=== PATIENT | male | born 1970 | race Caucasian/White ===

== ENCOUNTER 2024-12-11 15:35 | Inpatient (IN) | payer MEDICARE, MEDICAID ==
[~2024-12-11] VITALS: Ht 170.2 cm; Wt 92.9 kg
--- NOTE | 2024-12-11 15:54 | ED.PDOC ---
Musculoskeletal HPI Comments 54-year-old male presents with a chief complaint of bilateral leg wounds x "months" as well as generalized weakness. This patient appears to be in poor overall health. Patient states that he has draining, weeping wounds on both his lower extremities and is currently on linezolid for them. 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 Patient mentions that he takes Oxycodone for pain. Patients sister reports that also patient has bouts of confusion due to having high potassium and would like to have patients levels checked. No other symptoms or modifying factors present at this time. Patient w as hypertensive on arrival. Time Seen by MD: 15:46 Reviewed Notes: Nurses Notes, Medications, Allergies Allergies: Coded Allergies: Penicillins (Verified Allergy, Unknown, 12/11/24) Information Source: Patient, Relative (Sibling) Mode of Arrival: Wheelchair Location: Bilateral Extremity Location: Leg Timing: Months Prehospital treatment: None Severity: Moderate Able to Move Extremity: Yes Bear Weight: Limited Pain: Moderate Hand Dominance: Right Mechanism: Spontaneous Circumstances: Spontaneous Onset of Symptoms: Spontaneous Symptoms: Swelling, Pain DVT Risk Factors: NONE Last Tetanus: Unknown Past Medical History PAST MEDICAL HISTORY: Thyroid Surgical History: Denies all surgeries Family History Family History: Reviewed,noncontributory to illness Social History Smoker: Non-Smoker Alcohol: Denies ETOH Use Drugs: Denies Drug Use Lives In: Home Constitutional: reports: weakness; denies: chills, diaphoresis, fatigue, fever, malaise, sweats, others EENTM: denies: blurred vision, double vision, ear bleeding, ear discharge, ear drainage, ear pain, ear ringing, eye pain, eye redness, hearing loss, mouth pain, mouth swelling, nasal discharge, nose bleeding, nose congestion, nose pain, photophobia, tearing, throat pain, throat swelling, voice changes, others Respiratory: denies: cough, hemoptysis, orthopnea, SOB at rest, shortness of breath, SOB with excertion, stridor, wheezing, others Cardiovascular: denies: chest pain, dizzy spells, diaphoresis, Dyspnea on exertion, edema, irregular heart beat, left arm pain, lightheadedness, palpitations, PND, syncope, others Gastrointestinal: denies: abdomen distended, abdominal pain, blood streaked bowels, constipated, diarrhea, dysphagia, difficulty swallowing, hematemesis, melena, nausea, poor appetite, poor fluid intake, rectal bleeding, rectal pain, vomiting, others Genitourinary: denies: burning, dysuria, flank pain, frequency, hematuria, incontinence, penile discharge, penile sore, pain, testicle pain, testicle swelling, urgency, others Neurological: denies: dizziness, fainting, headache, left sided numbness, left sided weakness, numbness, paresthesia, pre-existing deficit, right sided numbness, right sided weakness, seizure, speech problems, tingling, tremors, weakness, others Musculoskeletal: denies: back pain, gout, joint pain, joint swelling, muscle pain, muscle stiffness, neck pain, others Integumetry: reports: wounds (Bilateral lower extremities); denies: bruises, change in color, change in hair/nails, dryness, laceration, lesions, lumps, rash, others Allergic/Immunocompromised: denies: Difficulty Healing, Frequent Infections, Hives, Itching, others Hematologic/Lymphatic: denies: anemia, blood clots, easy bleeding, easy bruising, swollen glands, others Endocrine: denies: excessive hunger, excessive sweating, excessive thirst, excessive urination, flushing, intolerance to cold, intolerance to heat, unexplained weight gain, unexplained weight loss, others Psychiatric: denies: anxiety, bipolar disorder, depression, hopeless, panic disorder, schizophrenia, sleepless, suicidal, others All Other Systems: Reviewed and Negative Physical Exam Exam Comments This patient appears to be in poor overall health at time of evaluation. Pat ient was very pale. General Appearance: Moderate Distress (Patient appears to be in moderate distress due to leg pain concerns and general weakness concerns.), Normal HEENT: Normal ENT Inspection, Pharynx Normal, TMs Normal Neck: Full Range of Motion, Non-Tender, Normal, Normal Inspection Respiratory: Chest Non-Tender, Lungs Clear, No Accessory Muscle Use, No Respiratory Distress, Normal Breath Sounds Cardiovascular: No Edema, No JVD, No Murmur, No Gallop, Normal Peripheral Pulses, Regular Rate/Rhythm Breast Exam: Deferred Gastrointestinal: No Organomegaly, Non Tender, No Pulsatile Mass, Normal Bowel Sounds, Soft Genitalia: Deferred Pelvic: Deferred Rectal: Deferred Extremities: Other (Patient has extensive wounds to bilateral lower extremities extending from the knee and through the ankle. Weeping wounds noted.) Musculoskeletal : Apperance: Normal Neurologic: Alert, No Motor Deficits, Normal Affect, Normal Mood, No Sensory Deficits Cerebellar Function: NOT DONE Reflexes: NOT DONE Skin: Dry, Normal Color, Warm Lymphatic: No Adenopathy Was a procedure done? Was a procedure done?: No Differential Diagnosis EXT Differential Diagnosis: Other (Cellulitis, electrolyte abnormality, DVT, renal concerns) X-Ray, Labs, Meds, VS Vital Signs Date Time Temp Pulse Resp B/P (MAP) Pulse Ox O2 Delivery O2 Flow Rate FiO2 12/11/24 16:01 97.8 79 19 163/61 (95) 98 Lab Test 12/11/24 16:34 Range/Units White Blood Count 8.5 4.4-10.8 10^3/uL Red Blood Count 2.80 L 4.5-5.90 10^6/uL Hemoglobin 9.1 L 13.5-17.5 g/dL Hematocrit 26.8 L 41.0-53.0 % Mean Corpuscular Volume 95.8 80.0-100.0 fL Mean Corpuscular Hemoglobin 32.5 H 28.0-32.0 pg Mean Corpuscular Hemoglobin Concent 33.9 32.0-36.0 g/dL Red Cell Distribution Width 15.8 H 11.8-14.3 % Platelet Count 237 140-450 10^3/uL Mean Platelet Volume 7.5 6.9-10.8 fL Neutrophils (%) (Auto) 75.3 37.0-80.0 % Lymphocytes (%) (Auto) 11.2 10.0-50.0 % Monocytes (%) (Auto) 7.7 0.0-12.0 % Eosinophils (%) (Auto) 5.4 0.0-7.0 % Basophils (%) (Auto) 0.4 0.0-2.0 % Neutrophils # (Auto) 6.4 1.6-8.6 10 ^3/uL Lymphocytes # (Auto) 1.0 0.4-5.4 10 ^3/uL Monocytes # (Auto) 0.7 0-1.3 10 ^3/uL Eosinophils # (Auto) 0.5 0-0.8 10 ^3/uL Basophils # (Auto) 0 0-0.2 10 ^3/uL Nucleated Red Blood Cells 0.0 % Sodium Level 137 136-145 mmol/L Potassium Level 5.8 *H 3.5-5.1 mmol/L Chloride Level 110 H 98-107 mmol/L Carbon Dioxide Level 16 L 20-31 mmol/L Anion Gap 11 5-15 Blood Urea Nitrogen 87 *H 9-23 mg/dL Creatinine 7.13 H 0.700-1.30 mg/dL Glomerular Filtration Rate Calc 8 >90 mL/min BUN/Creatinine Ratio 12.2 10.0-20.0 Serum Glucose 109 H 74-106 mg/dL Lactic Acid Level 0.8 0.4-2.0 mmol/L Calcium Level 9.7 8.7-10.4 mg/dL Total Bilirubin < 0.2 L 0.2-1.0 mg/dL Aspartate Amino Transferase (AST) 15 13-40 U/L Alanine Aminotransferase (ALT) < 9 7-40 U/L Alkaline Phosphatase 60 46-116 U/L Total Protein 7.4 5.7-8.2 g/dL Albumin 4.2 3.2-4.8 g/dL X-Ray, Labs, Meds, VS Comment All studies performed the ED were evaluated by me personally. Doppler studies of bilateral lower extremities were unremarkable for any DVT formation. Patient's serum laboratories do not show an elevated WBC, but patient did have a hypokalemic state as well as what appears to be acute on chronic significant renal concerns. Patient will be admitted for wound evaluation as well as management of his kidney issues and nephrology consultation. Time of 1ST Reevaluation: 15:46 Reevaluation 1ST: Unchanged Patient Education/Counseling: Diagnosis, Treatment, Prognosis Family Education/Counseling: Diagnosis, Treatment, Prognosis Departure 1 Departure Time of Disposition: 17:59 Impression: Primary Impression: Antibiotic-resistant bacterial infection Additional Impressions: Hyperkalemia Acute renal failure superimposed on chronic kidney disease Disposition: 09 ADMITTED INPATIENT Condition: Fair Discharged With: Self, Relative Critical Care Note Critical Care Time?: No Stability Stability form required: No I personally scribed for WALTER HERRERA PAC ([email or web address]) on 12/11/24 at 15:54. Electronically submitted by Francisco Carias ([email or web address]). WALTER HERRERA PAC Dec 11, 2024 15:54
--- NOTE | 2024-12-11 16:57 | DVH ---
Bilateral lower extremity venous duplex Clinical History: DVT rule out Comparison: None Technique: Duplex Doppler evaluation of the deep venous systems of both lower extremities from the common femora l veins to the popliteal veins including color Doppler and spectral/pulsed waveform analysis was perf ormed. Findings: RIGHT SIDE: The common femoral vein demonstrates appropriate compressibility and waveform variability. There is compressibility/patency of the great saphenous vein at the proximal thigh. The femoral vein demonstrates appropriate compressibility and waveform variability. The deep femoral vein demonstrates appropriate compressibility and waveform variability. The popliteal vein demonstrates appropriate compressibility and waveform variability. There is normal compressibility at the tibioperoneal trunk. LEFT SIDE: The common femoral vein demonstrates appropriate compressibility and waveform variability. There is compressibility/patency of the great saphenous vein at the proximal thigh. The femoral vein demonstrates appropriate compressibility and waveform variability. The deep femoral vein demonstrates appropriate compressibility and waveform variability. The popliteal vein demonstrates not visualized due to bandages Impression: 1. No right or left femoropopliteal venous thrombosis. 2. Left popliteal vein and distally not studied due to bandaging.
[2024-12-11 17:20] LABS: Basophils # (auto) 0 10 ^3/uL (0-0.2); Basophils % (auto) 0.4 % (0.0-2.0); Eosinophils # (auto) 0.5 10 ^3/uL (0-0.8); Eosinophils % (auto) 5.4 % (0.0-7.0); Hematocrit 26.8 % (41.0-53.0); Hemoglobin 9.1 g/dL (13.5-17.5); Lymphocytes % (auto) 11.2 % (10.0-50.0); Mean Corpuscular Hemoglobin 32.5 pg (28.0-32.0); Mean Corpuscular Hgb Conc. 33.9 g/dL (32.0-36.0); Mean Corpuscular Volume 95.8 fL (80.0-100.0); Monocytes # (auto) 0.7 10 ^3/uL (0-1.3); Monocytes % (auto) 7.7 % (0.0-12.0); Neutrophils # (auto) 6.4 10 ^3/uL (1.6-8.6); Neutrophils % (auto) 75.3 % (37.0-80.0); Platelet Count (auto) 237 10^3/uL (140-450); Red Cell Distribution Width 15.8 % (11.8-14.3); White Blood Cell 8.5 10^3/uL (4.4-10.8)
[2024-12-11 17:24] LABS: Alanine Aminotransferase < 9 U/L (7-40); Albumin 4.2 g/dL (3.2-4.8); Alkaline Phosphatase 60 U/L (46-116); Anion Gap 11 (5-15); Aspartate Aminotransferase 15 U/L (13-40); BUN/Creatinine Ratio 12.2 (10.0-20.0); Bilirubin, Total < 0.2 mg/dL (0.2-1.0); Calcium 9.7 mg/dL (8.7-10.4); Carbon Dioxide 16 mmol/L (20-31); Chloride 110 mmol/L (98-107); Glucose 109 mg/dL (74-106); Sodium 137 mmol/L (136-145); Total Protein 7.4 g/dL (5.7-8.2)
[2024-12-11 17:29] LABS: Blood Urea Nitrogen 87 mg/dL (9-23); Potassium 5.8 mmol/L (3.5-5.1)
[2024-12-11] MEDS: SODIUM ZIRCONIUM CYCL 10 GM PAK PO ONE (18:16)
[2024-12-11] MEDS: CALCIUM GLUC 1,000mg/50ml-NS 50 ML IV SCH (18:16)
[2024-12-11] MEDS: HYDROMORPHONE HCL 1 MG/ML INJ IM ONE (18:17)
[2024-12-11] MEDS ORDERED: ACETAMINOPHEN 325 MG TAB PO PRN (22:00)
[2024-12-11] MEDS ORDERED: VANCOMYCIN PER PHARMACY 0 MG IV SCH (22:15)
--- NOTE | 2024-12-11 23:39 | DVHHP2 ---
History of Present Illness Reason for Visit: Acute renal failure History of Present Illness The patient is a 54-year-old male with past medical history of hypertension and thyroid disease who presented to [facility] ED with complaint of bilateral lower extremity nonhealing wound for the past months associated with generalized weakness. Patient reports wound get worse with drains, weeping, getting worse that prompted this visit. Patient states he resides at [facility] currently on strong antibiotics that were prescribed by his office support specialist and receives in-home care by a wound care nurse everyday. Patient also reports he was supposed to be on dialysis, but he was off for unknown reason. Patient was seen and evaluated in the ED, laboratory data shows WBC 8.5, hemoglobin 9.1, hematocrit 26.8, platelets 237 sodium 137, potassium 5.8, BUN 87, creatinine 7.13, GFR 8, glucose 109, blood pressure 167/52, heart rate 80, temperature 97.7 F, O2 saturation 97% on room air. Please see medication orders section in the computer. On my assessment, patient denied chest pain, no headache, no dizziness, no shortness of breaths, no nausea, no vomiting, no fever, no chills. Patient was admitted for further evaluation and medical management. Past Medical History Thyroid disease, HTN Past Surgical History Denies all surgeries Family History Reviewed, noncontributory to the management of this case. Past Social History The patient lives at home, denies smoking, alcohol or illicit drugs abuse. Review of Systems Constitutional: Yes: Weakness; No: Fever, Chills, Sweats, Malaise, Other Eyes: No: Pain, Vision change, Conjunctivae inflammation, Eyelid inflammation, Other, Redness ENT: No: Ear pain, Ear discharge, Nose pain, Nose discharge, Nose congestion, Mouth pain, Mouth swelling, Throat pain, Throat swelling, Other Respiratory: No: Cough, Dry, Shortness of breath, SOB with excertion, Wheezing, Hemoptysis, Pleuritic Pain, Sputum, Wheezing, Other Cardiovascular: No: Chest Pain, Palpitations, Orthopnea, Paroxysmal Noc. Dyspnea, Edema, Lt Headedness, Other Gastrointestinal: No: Nausea, Vomiting, Abdominal Pain, Diarrhea, Constipation, Melena, Hematochezia, Other Genitourinary: No Dysuria, No Frequency, No Incontinence, No Hematuria, No Retention, No Other Musculoskeletal: No: other, neck pain, shoulder pain, arm pain, back pain, hand pain, leg pain, foot pain Skin: Rash (Bilateral lower extremity open wound.); No: Lesions, Jaundice, Bruising, Other Neurological: No: Weakness, Numbness, Incoordination, Change in speech, Confusion, Seizures, Other Allergies: Coded Allergies: Penicillins (Verified Allergy, Unknown, 12/11/24) Medications Current Medications Medications Dose Ordered Sig/Mily Route Start Time Stop Time Status Last Admin Dose Admin Sodium Chloride 1,000 ml @ 60 mls/hr [id number] IV 12/11/24 22:00 Acetaminophen/ Hydrocodone Bitart 1 tab Q4HP PRN PO 12/11/24 22:00 Ondansetron HCl 4 mg Q4HP PRN IV 12/11/24 22:00 Docusate Sodium 100 mg BIDPRN PRN PO 12/11/24 22:00 Acetaminophen 650 mg Q6HP PRN PO 12/11/24 22:00 Vancomycin HCl 0 ml @ 0 mls/hr UD IV 12/11/24 22:15 UNV Hydralazine HCl 10 mg Q6HP PRN IV 12/11/24 22:30 Exam Vital Signs Vital Signs Date Time Temp Pulse Resp B/P (MAP) Pulse Ox O2 Delivery O2 Flow Rate FiO2 12/11/24 19:30 97.7 80 16 167/52 (90) 97 97.7 General Appearance: Alert, Oriented X3, Cooperative, No acute distress HEENT: Atraumatic, PERRLA, EOMI, Mucous membr. moist/pink Respiratory: Clear to auscultation, Normal air movement Cardiovascular: Regular rate, Normal S1, Normal S2, No murmurs Abdominal: Normal bowel sounds, Soft, No tenderness, No hepatospenomegaly, No masses Extremities: No clubbing, No cyanosis, No edema, Normal pulses, No tenderness/swelling Skin: No rashes, No breakdown, No significant lesion Neuro: Normal speech, Normal tone, Sensation intact, Cranial nerves 3-12 NL, Reflexes 2+, Other (Generalized weakness) Psych/Mental Status: Mental status NL, Mood NL Labs/Xrays Labs Test 12/11/24 16:34 Range/Units White Blood Count 8.5 4.4-10.8 10^3/uL Red Blood Count 2.80 L 4.5-5.90 10^6/uL Hemoglobin 9.1 L 13.5-17.5 g/dL Hematocrit 26.8 L 41.0-53.0 % Mean Corpuscular Volume 95.8 80.0-100.0 fL Mean Corpuscular Hemoglobin 32.5 H 28.0-32.0 pg Mean Corpuscular Hemoglobin Concent 33.9 32.0-36.0 g/dL Red Cell Distribution Width 15.8 H 11.8-14.3 % Platelet Count 237 140-450 10^3/uL Mean Platelet Volume 7.5 6.9-10.8 fL Neutrophils (%) (Auto) 75.3 37.0-80.0 % Lymphocytes (%) (Auto) 11.2 10.0-50.0 % Monocytes (%) (Auto) 7.7 0.0-12.0 % Eosinophils (%) (Auto) 5.4 0.0-7.0 % Basophils (%) (Auto) 0.4 0.0-2.0 % Neutrophils # (Auto) 6.4 1.6-8.6 10 ^3/uL Lymphocytes # (Auto) 1.0 0.4-5.4 10 ^3/uL Monocytes # (Auto) 0.7 0-1.3 10 ^3/uL Eosinophils # (Auto) 0.5 0-0.8 10 ^3/uL Basophils # (Auto) 0 0-0.2 10 ^3/uL Nucleated Red Blood Cells 0.0 % Sodium Level 137 136-145 mmol/L Potassium Level 5.8 *H 3.5-5.1 mmol/L Chloride Level 110 H 98-107 mmol/L Carbon Dioxide Level 16 L 20-31 mmol/L Anion Gap 11 5-15 Blood Urea Nitrogen 87 *H 9-23 mg/dL Creatinine 7.13 H 0.700-1.30 mg/dL Glomerular Filtration Rate Calc 8 >90 mL/min BUN/Creatinine Ratio 12.2 10.0-20.0 Serum Glucose 109 H 74-106 mg/dL Lactic Acid Level 0.8 0.4-2.0 mmol/L Calcium Level 9.7 8.7-10.4 mg/dL Total Bilirubin < 0.2 L 0.2-1.0 mg/dL Aspartate Amino Transferase (AST) 15 13-40 U/L Alanine Aminotransferase (ALT) < 9 7-40 U/L Alkaline Phosphatase 60 46-116 U/L Total Protein 7.4 5.7-8.2 g/dL Albumin 4.2 3.2-4.8 g/dL Thyroid Stimulating Hormone (TSH) 10.52 H 0.55-4.78 uIU/mL PATIENT: HUSSAIN LY ACCT: [id number] UNIT: [id number] : 1970 LOC: ER ROOM / BED: / AGE / SEX: 54 / M ADM STATUS: REG ER SERVICE [id number] ORDERING PHYSICIAN: WALTER HERRERA PAC PROCEDURE(s): BLDVT - BiLat Lower DVT REASON: DVT rule out ORDER NUMBER(s): [id number], ACCESSION NUMBER(s): [id number] Bilateral lower extremity venous duplex Clinical History: DVT rule out Comparison: None Technique: Duplex Doppler evaluation of the deep venous systems of both lower extremities from the common femoral veins to the popliteal veins including color Doppler and spectral/pulsed waveform analysis was performed. Findings: RIGHT SIDE: The common femoral vein demonstrates appropriate compressibility and waveform variability. There is compressibility/patency of the great saphenous vein at the proximal thigh. The femoral vein demonstrates appropriate compressibility and waveform variability. The deep femoral vein demonstrates appropriate compressibility and waveform variability. The popliteal vein demonstrates appropriate compressibility and waveform variability. There is normal compressibility at the tibioperoneal trunk. LEFT SIDE: The common femoral vein demonstrates appropriate compressibility and waveform variability. There is compressibility/patency of the great saphenous vein at the proximal thigh. The femoral vein demonstrates appropriate compressibility and waveform variability. The deep femoral vein demonstrates appropriate compressibility and waveform variability. The popliteal vein demonstrates not visualized due to bandages Impression: 1. No right or left femoropopliteal venous thrombosis. 2. Left popliteal vein and distally not studied due to bandaging. Assessment/Plan Assessment/Plan Hyperkalemia Bilateral lower extremity open wound Antibiotic-resistant bacterial infection Acute renal failure superimposed on chronic kidney disease Plan 1. Admit to telemetry unit 2. Breathing treatment 3. Pain control management 4. IV antibiotic management 5. Management of fluids and electrolytes 6. Consultation for hospitalist/nephrology/ wound care 7. Diagnostic test extremity venous study 8. DVT prophylaxis-on heparin 9. Repeat labs CBC, CMP in a.m. 10. Home medication reviewed and reconciled 11. Continue with current medical management 12. Treatment plan discussed with patient and RN. Patient verbalized understanding. Plan discussed with: Patient, Other (RN) My Orders Orders - ALEX DAMON DNP Procedure Category Date Status Time Allergies LINSEY 12/11/24 In Process 21:56 Code Status CODE 12/11/24 Transmitted 21:56 Sodium Chloride 0.9% PHA 12/11/24 In Process 22:00 Oxygen Per Hour RT 12/11/24 Transmitted 21:56 Hydrocodone-Acet PHA 12/11/24 In Process 5/325mg Tab ([place] 22:00 Ondansetron Hcl PHA 12/11/24 In Process (Zofran) 22:00 Docusate Sodium PHA 12/11/24 In Process Capsule (Colace 22:00 Complete Blood Count LAB 12/12/24 Verified 04:00 Comprehensive LAB 12/12/24 Verified Metabolic Panel 04:00 Cardiac DIET 12/12/24 Transmitted Diet-2gna,Lofat,Lochol Breakfast Condition: Serious LINSEY 12/11/24 In Process 21:56 Acetaminophen Tablet PHA 12/11/24 In Process (Tylenol Tablet) 22:00 Bedrest With Bathroom LINSEY 12/11/24 In Process Privileg 21:56 Sequential LINSEY 12/11/24 In Process Compression Device Vancomycin Per PHA 12/11/24 Pending Pharmacy 22:15 *[facility] CONS 12/11/24 Transmitted -[place] 22:10 Hydralazine Injection PHA 12/11/24 In Process (Apresoline Inject 22:30 Problem List: (1) Hyperkalemia (2) Antibiotic-resistant bacterial infection (3) Open wound of both lower extremities (4) Acute renal failure superimposed on chronic kidney disease Date of Service: Dec 11, 2024 Billing Provider: ALEX DAMON DNP Common Visit Codes: [id number] INP/OBS CARE (HIGH) ALEX DAMON DNP Dec 11, 2024 23:39
[2024-12-11] MEDS ORDERED: NITROGLYCERIN 0.4 MG SL TAB SL PRN (23:45)
[2024-12-11] MEDS ORDERED: MORPHINE SULFATE INJ 2 MG/ml SYRG IV PRN (23:45)
[2024-12-11] MEDS: HYDROcodone-ACET 5/325MG TAB PO PRN (23:49)
[2024-12-11] MEDS: VANCOMYCIN 1GM/250mL NS or D5W KIT IV ONE (23:49)
[2024-12-12] MEDS: SODIUM CHLORIDE 0.9% 1,000 ML IV SCH (00:26)
[2024-12-12 04:39] LABS: Basophils # (auto) 0 10 ^3/uL (0-0.2); Basophils % (auto) 0.7 % (0.0-2.0); Eosinophils # (auto) 0.4 10 ^3/uL (0-0.8); Eosinophils % (auto) 6.5 % (0.0-7.0); Hematocrit 28.2 % (41.0-53.0); Hemoglobin 9.9 g/dL (13.5-17.5); Lymphocytes # (auto) 0.9 10 ^3/uL (0.4-5.4); Lymphocytes % (auto) 13.2 % (10.0-50.0); Mean Corpuscular Volume 94.3 fL (80.0-100.0); Monocytes # (auto) 0.4 10 ^3/uL (0-1.3); Monocytes % (auto) 6.4 % (0.0-12.0); Neutrophils % (auto) 73.2 % (37.0-80.0); Platelet Count (auto) 262 10^3/uL (140-450); Red Blood Cells 2.99 10^6/uL (4.5-5.90); Red Cell Distribution Width 15.6 % (11.8-14.3); White Blood Cell 6.8 10^3/uL (4.4-10.8)
[2024-12-12 04:55] LABS: Albumin 3.9 g/dL (3.2-4.8); Alkaline Phosphatase 57 U/L (46-116); Anion Gap 12 (5-15); Aspartate Aminotransferase 15 U/L (13-40); BUN/Creatinine Ratio 12.8 (10.0-20.0); Calcium 9.9 mg/dL (8.7-10.4); Sodium 136 mmol/L (136-145); Total Protein 7.2 g/dL (5.7-8.2)
[2024-12-12 05:04] LABS: Carbon Dioxide 16 mmol/L (20-31); Chloride 108 mmol/L (98-107); Glucose 120 mg/dL (74-106); Potassium 5.1 mmol/L (3.5-5.1)
[2024-12-12 05:05] LABS: Alanine Aminotransferase < 9 U/L (7-40); Bilirubin, Total < 0.2 mg/dL (0.2-1.0); Blood Urea Nitrogen 88 mg/dL (9-23)
[2024-12-12] MEDS: HEPARIN SODIUM (PORCINE) 5000 UNITS/ML 1ML VIAL SC SCH (09:50)
[2024-12-12] MEDS: hydrALAZINE HCL 20 MG/ML VL IV PRN (09:51)
[2024-12-12] MEDS: ONDANSETRON HCL 4 MG/2 ML VIAL IV PRN (11:06)
[2024-12-12] MEDS: MORPHINE SULFATE 4 MG/ML SYR/VIAL ONE (11:07)
--- NOTE | 2024-12-12 12:58 | DVH ---
EXAM: US Retroperitoneal Limited, Renal CLINICAL INDICATION: lilia TECHNIQUE: Real-time limited ultrasound of the retroperitoneum with image documentation. COMPARISON: None FINDINGS: RIGHT KIDNEY: Right kidney measures up to 10.0 cm. No stones. No hydronephrosis. LEFT KIDNEY: Unremarkable. No stones. No hydronephrosis. Left kidney measures 9.7 cm. OTHER FINDINGS: . Prevoid volume 566 cc. . . .. IMPRESSION: No acute findings in the retroperitoneum.
--- NOTE | 2024-12-12 14:05 | DVHPN2 ---
Reviewed: Care Plan, H&P, Labs, Medications, Previous Orders, Radiology Changes from previous H/P or p: No Changes Eyes: No Pain, No Vision change, No Conjunctivae inflammation, No Eyelid inflammation, No Other, No Redness ENT: No Ear pain, No Ear discharge, No Nose pain, No Nose discharge, No Nose congestion, No Mouth pain, No Mouth swelling, No Throat pain, No Throat swelling, No Other Cardiovascular: No Chest Pain, No Palpitations, No Orthopnea, No Paroxysmal Noc. Dyspnea, No Edema, No Lt Headedness, No Other Respiratory: No Cough, No Dry, No Shortness of breath, No SOB with excertion, No Wheezing, No Hemoptysis, No Pleuritic Pain, No Sputum, No Other Gastrointestinal: No Nausea, No Vomiting, No Abdominal Pain, No Diarrhea, No Constipation, No Melena, No Hematochezia, No Other Genitourinary: No Dysuria, No Frequency, No Incontinence, No Hematuria, No Retention, No Other Musculoskeletal: No other, No neck pain, No shoulder pain, No arm pain, No back pain, No hand pain, No leg pain, No foot pain Skin: Rash (Bilateral lower extremity open wound.); No Lesions, No Jaundice, No Bruising, No Other Objective Vitals Vital Signs Date Time Temp Pulse Resp B/P (MAP) Pulse Ox O2 Delivery O2 Flow Rate FiO2 12/12/24 11:58 98.9 97 17 147/87 (107) 99 98.9 Intake/Output Intake and Output 12/12/24 07:00 Intake Total 300 ml Balance 300 ml Intake IV Total 300 ml Medications Current Medications Medications Dose Ordered Sig/Mily Route Start Time Stop Time Status Last Admin Dose Admin Sodium Chloride 1,000 ml @ 60 mls/hr [id number] IV 12/11/24 22:00 Acetaminophen/ Hydrocodone Bitart 1 tab Q4HP PRN PO 12/11/24 22:00 12/11/24 23:49 1 TAB Ondansetron HCl 4 mg Q4HP PRN IV 12/11/24 22:00 12/12/24 11:06 4 MG Docusate Sodium 100 mg BIDPRN PRN PO 12/11/24 22:00 Acetaminophen 650 mg Q6HP PRN PO 12/11/24 22:00 Vancomycin HCl 0 ml @ 0 mls/hr UD IV 12/11/24 22:15 Hydralazine HCl 10 mg Q6HP PRN IV 12/11/24 22:30 12/12/24 09:51 10 MG Nitroglycerin 0.4 mg Q5MINP PRN SL 12/11/24 23:45 Morphine Sulfate 2 mg Q30M PRN IV 12/11/24 23:45 Heparin Sodium (Porcine) 5,000 units Q12HR SC 12/12/24 10:00 12/12/24 09:50 5,000 UNITS Morphine Sulfate 4 mg Q4HPRN PRN IV 12/12/24 11:00 Laboratory Results Laboratory Tests 12/12/24 03:59 Chemistry Test 12/11/24 16:34 12/12/24 03:59 Albumin 4.2 g/dL (3.2-4.8) 3.9 g/dL (3.2-4.8) Calcium Level 9.7 mg/dL (8.7-10.4) 9.9 mg/dL (8.7-10.4) Total Protein 7.4 g/dL (5.7-8.2) 7.2 g/dL (5.7-8.2) LFT Test 12/11/24 16:34 12/12/24 03:59 Alanine Aminotransferase (ALT) < 9 U/L (7-40) < 9 U/L (7-40) Alkaline Phosphatase 60 U/L (46-116) 57 U/L (46-116) Aspartate Amino Transferase (AST) 15 U/L (13-40) 15 U/L (13-40) Total Bilirubin < 0.2 mg/dL (0.2-1.0) L < 0.2 mg/dL (0.2-1.0) L HgA1c, TSH Test 12/11/24 16:34 Thyroid Stimulating Hormone (TSH) 10.52 uIU/mL (0.55-4.78) H Labs and/or images reviewed: Labs reviewed by me, Image(s) reviewed by me Assessment/Plan Assessment/Plan Sepsis secondary to bilateral lower leg cellulitis Bilateral Lower leg cellulitis: Vancomycin ESRD not on dialysis: Consult for DVT ruled out Hypertension Anemia of chronic disease Moderate malnutrition Hypothyroidism Time spent 70 minutes Advanced care time 20 minutes Patient is full code Plan discussed with: Patient Date of Service: Dec 12, 2024 Billing Provider: MURALI LOBATO MD Common Visit Codes: [id number] CARE 30-74 MIN MURALI LOBATO MD Dec 12, 2024 14:05
[2024-12-12] MEDS: MORPHINE SULFATE 4 MG/ML SYR/VIAL IV PRN (16:14)
[2024-12-12] MEDS: SODIUM BICARB 8.4% 50Meq/50ml SYR Vial IV ONE (18:15)
--- NOTE | 2024-12-12 18:23 | DVHINCON2 ---
Date of service: Dec 12, 2024 Reason for Consultation esrd History of Present Illness 54 years old male with past medical history of hypertension, Chronic kidney disease five, thyroid disease hypothyroidism, foot wounds, presented with chief complaints of nonhealing wound on bilateral lower extremities patient tells me that he lives in [place] and he is traveling here, few weeks ago patient was in hospital in [place] and underwent dialysis for three weeks and his cleat blanker informed him he does not need dialysis as his renal function improved patient dialysis catheter was removed and he was discharged as per patient--he is supposed to follow with his doctors soon next week denies any uri nary complaints Past Medical History As per HPI Past Surgical History As per HPI Allergies: Coded Allergies: Penicillins (Verified Allergy, Unknown, 12/11/24) Current Medications Current Medications Medications (Trade) Dose Ordered Sig/Mily Route PRN Reason Start Time Stop Time Status Last Admin Sodium Chloride 1,000 ml @ 60 mls/hr [id number] IV 12/11/24 22:00 Acetaminophen/ Hydrocodone Bitart ([place] 5/325MG Tab) 1 tab Q4HP PRN PO MODERATE PAIN (4-6 PAIN SCALE) 12/11/24 22:00 12/11/24 23:49 Ondansetron HCl (Zofran) 4 mg Q4HP PRN IV NAUSEA / VOMITING 12/11/24 22:00 12/12/24 16:13 Docusate Sodium (Colace Capsule) 100 mg BIDPRN PRN PO FOR CONSTIPATION 12/11/24 22:00 Acetaminophen (Tylenol Tablet) 650 mg Q6HP PRN PO PAIN SCALE 1-3 OR TEMP>100.4 12/11/24 22:00 Vancomycin HCl 0 ml @ 0 mls/hr UD IV 12/11/24 22:15 Hydralazine HCl (Apresoline Injection) 10 mg Q6HP PRN IV SBP>150 12/11/24 22:30 12/12/24 09:51 Nitroglycerin (Ntrostat Sublingual) 0.4 mg Q5MINP PRN SL FOR CHEST PAIN 12/11/24 23:45 Morphine Sulfate 2 mg Q30M PRN IV FOR CHEST PAIN 12/11/24 23:45 Heparin Sodium (Porcine) 5,000 units Q12HR SC 12/12/24 10:00 12/12/24 09:50 Morphine Sulfate 4 mg Q4HPRN PRN IV SEVERE PAIN (7-10 PAIN SCALE) 12/12/24 11:00 12/12/24 16:14 Sodium Bicarbonate 650 mg QID PO 12/12/24 22:00 UNV Review of Systems As documented in HPI H&P Exam Vital Signs/I&O Vital Sign Date Time Temp Pulse Resp B/P (MAP) Pulse Ox O2 Delivery O2 Flow Rate FiO2 12/12/24 16:14 89 18 161/65 12/12/24 11:58 98.9 99 98.9 Intake and Output 12/11/24 12/12/24 19:00 07:00 Intake Total 50 ml 250 ml Balance 50 ml 250 ml Intake IV Total 50 ml 250 ml Physical Exam General-not in any distress HEENT-normocephalic, no icterus, no pallor, neck supple Respiratory-fair air entry bilateral, no rhonchi, no wheeze [id number] heard, no murmurs appreciated Abdominal-soft, nontender, nondistended Musculoskeletal-bilateral lower extremity wrapped Genitourinary-deferred Neuro-awake alert oriented x3, Psychiatric-not agitated, cooperative, Labs/Diagnostic Data Labs/Diagnostic Data Laboratory Tests Test 12/12/24 03:59 12/11/24 16:34 Range/Units White Blood Count 6.8 8.5 4.4-10.8 10^3/uL Red Blood Count 2.99 L 2.80 L 4.5-5.90 10^6/uL Hemoglobin 9.9 L 9.1 L 13.5-17.5 g/dL Hematocrit 28.2 L 26.8 L 41.0-53.0 % Mean Corpuscular Volume 94.3 95.8 80.0-100.0 fL Mean Corpuscular Hemoglobin 33.0 H 32.5 H 28.0-32.0 pg Mean Corpuscular Hemoglobin Concent 35.0 33.9 32.0-36.0 g/dL Red Cell Distribution Width 15.6 H 15.8 H 11.8-14.3 % Platelet Count 262 237 140-450 10^3/uL Mean Platelet Volume 7.2 7.5 6.9-10.8 fL Neutrophils (%) (Auto) 73.2 75.3 37.0-80.0 % Lymphocytes (%) (Auto) 13.2 11.2 10.0-50.0 % Monocytes (%) (Auto) 6.4 7.7 0.0-12.0 % Eosinophils (%) (Auto) 6.5 5.4 0.0-7.0 % Basophils (%) (Auto) 0.7 0.4 0.0-2.0 % Neutrophils # (Auto) 5.0 6.4 1.6-8.6 10 ^3/uL Lymphocytes # (Auto) 0.9 1.0 0.4-5.4 10 ^3/uL Monocytes # (Auto) 0.4 0.7 0-1.3 10 ^3/uL Eosinophils # (Auto) 0.4 0.5 0-0.8 10 ^3/uL Basophils # (Auto) 0 0 0-0.2 10 ^3/uL Nucleated Red Blood Cells 0.0 0.0 % Sodium Level 136 137 136-145 mmol/L Potassium Level 5.1 5.8 *H 3.5-5.1 mmol/L Chloride Level 108 H 110 H 98-107 mmol/L Carbon Dioxide Level 16 L 16 L 20-31 mmol/L Anion Gap 12 11 5-15 Blood Urea Nitrogen 88 *H 87 *H 9-23 mg/dL Creatinine 6.89 H 7.13 H 0.700-1.30 mg/dL Glomerular Filtration Rate Calc 9 8 >90 mL/min BUN/Creatinine Ratio 12.8 12.2 10.0-20.0 Serum Glucose 120 H 109 H 74-106 mg/dL Calcium Level 9.9 9.7 8.7-10.4 mg/dL Total Bilirubin < 0.2 L < 0.2 L 0.2-1.0 mg/dL Aspartate Amino Transferase (AST) 15 15 13-40 U/L Alanine Aminotransferase (ALT) < 9 < 9 7-40 U/L Alkaline Phosphatase 57 60 46-116 U/L Total Protein 7.2 7.4 5.7-8.2 g/dL Albumin 3.9 4.2 3.2-4.8 g/dL Lactic Acid Level 0.8 0.4-2.0 mmol/L Thyroid Stimulating Hormone (TSH) 10.52 H 0.55-4.78 uIU/mL Assessment Mavis on ckd5 --hemodynamic mediated hx of dialysis for three weeks,, currently is stopped in [facility] Bilateral lower extremity cellulitis Metabolic acidosis Hypertension Hyperkalemia Recommendations No indication for urgent dialysis here patient is visiting from [place] he said he is going back soon to [place] next week he has an appointment with his doctor on December 16 Sodium bicarbonate as ordered---continue after discharge Lokelma 10 g daily currently and after discharge Antibiotics per medical team for cellulitis recommend renal dosing Blood pressure control Lasix 80 mg daily continue on discharge We will follow closely Kidney ultrasound no hydronephrosis I have informed patient that he should follow with cleat blanker as soon as possible when he goes to [place] He will need dialysis in near future Reviewed vital signs, lab work, imaging studies, medications, microbiology, othe r physician recommendations Total time spent 80 minutes More than 50% of the time spent providing direct [id number] care . Thank you for allowing me to participate in the care of your patient. Plan discussed with: Patient YOSEF HUANG MD Dec 12, 2024 18:23
[2024-12-12] MEDS: FUROSEMIDE 40 MG TAB PO SCH (18:30)
[2024-12-12 19:39] VITALS: O2SAT 96
[2024-12-12 20:00] VITALS: PULSE 91; RESP 16
[2024-12-12] MEDS: SODIUM ZIRCONIUM CYCL 10 GM PAK PO SCH (20:32)
[2024-12-12 21:00] VITALS: BP 118/53; PULSE 87; RESP 19; TEMP 98.3; O2SAT 99
[2024-12-12] MEDS: SODIUM BICARBONATE 650 MG TAB PO SCH (21:43)
[2024-12-13] VITALS (8 sets, daily range): BP systolic 118–145; BP diastolic 52–72; PULSE 78–101; RESP 15–19; TEMP 97.6–98.6; O2SAT 97–100
[2024-12-13 04:20] LABS: Anion Gap 10 (5-15); Calcium 9.2 mg/dL (8.7-10.4); Sodium 139 mmol/L (136-145)
[2024-12-13 04:26] LABS: BUN/Creatinine Ratio 12.4 (10.0-20.0)
[2024-12-13 04:27] LABS: Blood Urea Nitrogen 79 mg/dL (9-23); Carbon Dioxide 18 mmol/L (20-31); Chloride 111 mmol/L (98-107); Glucose 108 mg/dL (74-106); Potassium 5.4 mmol/L (3.5-5.1)
[2024-12-13 04:32] LABS: Protein, Urine 93.6 mg/dL (1-14)
[2024-12-13 04:34] LABS: Creatinine, Urine 71.73 mg/dL (30.0-125.0)
[2024-12-13 04:43] LABS: Urine Bacteria None Seen /hpf (None Seen); Urine Blood TRACE /uL (Negative); Urine Budding Yeast OCCASIONAL /hpf (None Seen); Urine Clarity Turbid (Clear); Urine Color Colorless (Yellow); Urine Protein, UAD 1+ (Negative); Urine Specific Gravity 1.014 (1.001-1.035); Urine Squamous Epithelial Cell FEW /hpf (<5); Urine Urobilinogen Normal (Negative); Urine WBC 472 /HPF (0-3); Urine WBC Clumps PRESENT /hpf (None Seen); Urine pH 5.5 (5.0-9.0)
[2024-12-13] MEDS: SODIUM BICARB 8.4% 50Meq/50ml SYR Vial IV ONE (09:43)
[2024-12-13] MEDS: VANCOMYCIN 500mg/100mL 100 ML IV ONE (12:06)
--- NOTE | 2024-12-13 12:25 | DVHPN2 ---
Reviewed: Care Plan, H&P, Labs, Medications, Previous Orders, Radiology Changes from previous H/P or p: No Changes Eyes: No Pain, No Vision change, No Conjunctivae inflammation, No Eyelid inflammation, No Other, No Redness ENT: No Ear pain, No Ear discharge, No Nose pain, No Nose discharge, No Nose congestion, No Mouth pain, No Mouth swelling, No Throat pain, No Throat swelling, No Other Cardiovascular: No Chest Pain, No Palpitations, No Orthopnea, No Paroxysmal Noc. Dyspnea, No Edema, No Lt Headedness, No Other Respiratory: No Cough, No Dry, No Shortness of breath, No SOB with excertion, No Wheezing, No Hemoptysis, No Pleuritic Pain, No Sputum, No Other Gastrointestinal: No Nausea, No Vomiting, No Abdominal Pain, No Diarrhea, No Constipation, No Melena, No Hematochezia, No Other Genitourinary: No Dysuria, No Frequency, No Incontinence, No Hematuria, No Retention, No Other Musculoskeletal: No other, No neck pain, No shoulder pain, No arm pain, No back pain, No hand pain, No leg pain, No foot pain Skin: Rash (Bilateral lower extremity open wound.); No Lesions, No Jaundice, No Bruising, No Other Objective Vitals Vital Signs Date Time Temp Pulse Resp B/P (MAP) Pulse Ox O2 Delivery O2 Flow Rate FiO2 12/13/24 11:03 101 18 138/64 12/13/24 08:25 97.7 98 97.7 12/13/24 08:09 Room Air* 0 21 Intake/Output Intake and Output 12/13/24 07:00 Intake Total 400 ml Balance 400 ml Intake Oral 400 ml # Voids 1 Medications Current Medications Medications Dose Ordered Sig/Mily Route Start Time Stop Time Status Last Admin Dose Admin Sodium Chloride 1,000 ml @ 60 mls/hr [id number] IV 12/11/24 22:00 12/13/24 09:45 60 MLS/HR Acetaminophen/ Hydrocodone Bitart 1 tab Q4HP PRN PO 12/11/24 22:00 12/11/24 23:49 1 TAB Ondansetron HCl 4 mg Q4HP PRN IV 12/11/24 22:00 12/12/24 16:13 4 MG Docusate Sodium 100 mg BIDPRN PRN PO 12/11/24 22:00 Acetaminophen 650 mg Q6HP PRN PO 12/11/24 22:00 Vancomycin HCl 0 ml @ 0 mls/hr UD IV 12/11/24 22:15 Hydralazine HCl 10 mg Q6HP PRN IV 12/11/24 22:30 12/12/24 09:51 10 MG Nitroglycerin 0.4 mg Q5MINP PRN SL 12/11/24 23:45 Morphine Sulfate 2 mg Q30M PRN IV 12/11/24 23:45 Heparin Sodium (Porcine) 5,000 units Q12HR SC 12/12/24 10:00 12/13/24 09:46 5,000 UNITS Morphine Sulfate 4 mg Q4HPRN PRN IV 12/12/24 11:00 12/13/24 11:03 4 MG Sodium Bicarbonate 650 mg QID PO 12/12/24 22:00 12/13/24 12:04 650 MG Furosemide 80 mg DAILY PO 12/12/24 18:30 12/13/24 09:44 80 MG Zirconium Oxide 10 gm DAILY PO 12/12/24 18:29 12/13/24 09:43 10 GM Laboratory Results Laboratory Tests 12/12/24 03:59 12/13/24 03:40 Chemistry Test 12/13/24 03:40 Calcium Level 9.2 mg/dL (8.7-10.4) Urinalysis Test 12/13/24 04:34 12/13/24 04:44 Urine Creatinine 71.73 mg/dL (30.0-125.0) Urine Sodium 41 mmol/L (40-220) Urine Total Protein 93.6 mg/dL (1-14) H Urine Color Colorless (Yellow) Urine Clarity Turbid (Clear) H Urine pH 5.5 (5.0-9.0) Urine Specific [place] 1.014 (1.001-1.035) Urine Protein 1+ (Negative) H Urine Ketones Negative (Negative) Urine Blood Trace /uL (Negative) H Urine Nitrite Negative (Negative) Urine Bilirubin Negative (Negative) Urine Urobilinogen Normal mg/dL (Negative) Urine Leukocyte Esterase 3+ /uL (Negative) Urine RBC 4 /hpf (0 - 3) Urine WBC Clumps Present /hpf (None Seen) Urine Microscopic WBC 472 /HPF (0-3) H Urine Squamous Epithelial Cells Few /hpf (<5) Urine Bacteria None seen /hpf (None Seen) Urine Yeast (Budding) Occasional /hpf (None Urine Glucose Normal mg/dL (Normal) Labs and/or images reviewed: Labs reviewed by me, Image(s) reviewed by me Assessment/Plan Assessment/Plan Sepsis secondary to bilateral lower leg cellulitis Bilateral Lower leg cellulitis: Vancomycin ESRD not on dialysis: Had Dialysis for three weeks in [place] discontinued one week ago and he was told he does not need any more dialysis Consult for appreciated, currently not in urgent need of dialysis, patient is also thinking of going back to [place] Acute hyperkalemia resolved DVT ruled out Hypertension Anemia of chronic disease Moderate malnutrition Severe hypothyroidism TSH 10.5: Synthroid Time spent 60 minutes Advanced care time 20 minutes Patient is full code Medication noncompliance Patient sister and BENI Rojas [phone] was at bedside in the emergency room Plan discussed with: Patient My Orders Orders - MURALI LOBATO MD Procedure Category Date Status Time Blood Culture JAJA 12/13/24 Logged 12:10 Date of Service: Dec 13, 2024 Billing Provider: MURALI LOBATO MD Common Visit Codes: [id number] INP/OBS CARE(HIGH) Secondary Visit Codes: [id number] CARE PLAN 30 MINUTES MURALI LOBATO MD Dec 13, 2024 12:25
--- NOTE | 2024-12-13 17:43 | DVHPN2 ---
Progress Note Date Seen: Dec 13, 2024 Medical Necessity Reason Pt with a Central, PICC or Fol: No Subjective Patient reports: No new complaints Review of Systems: MSK:Abnormal Objective vital signs Vital Sign Date Time Temp Pulse Resp B/P (MAP) Pulse Ox O2 Delivery O2 Flow Rate FiO2 12/13/24 16:29 98.3 78 16 143/72 (95) 99 98.3 12/13/24 08:09 Room Air* 0 21 Total Intake and Output 12/12/24 12/12/24 12/13/24 15:00 23:00 07:00 Intake Total 400 ml Balance 400 ml medications Current Medications Medications Dose Ordered Sig/Mily Route Start Time Stop Time Status Last Admin Dose Admin Sodium Chloride 1,000 ml @ 60 mls/hr [id number] IV 12/11/24 22:00 12/13/24 09:45 60 MLS/HR Acetaminophen/ Hydrocodone Bitart 1 tab Q4HP PRN PO 12/11/24 22:00 12/11/24 23:49 1 TAB Ondansetron HCl 4 mg Q4HP PRN IV 12/11/24 22:00 12/12/24 16:13 4 MG Docusate Sodium 100 mg BIDPRN PRN PO 12/11/24 22:00 Acetaminophen 650 mg Q6HP PRN PO 12/11/24 22:00 Vancomycin HCl 0 ml @ 0 mls/hr UD IV 12/11/24 22:15 Hydralazine HCl 10 mg Q6HP PRN IV 12/11/24 22:30 12/12/24 09:51 10 MG Nitroglycerin 0.4 mg Q5MINP PRN SL 12/11/24 23:45 Morphine Sulfate 2 mg Q30M PRN IV 12/11/24 23:45 Heparin Sodium (Porcine) 5,000 units Q12HR SC 12/12/24 10:00 12/13/24 09:46 5,000 UNITS Morphine Sulfate 4 mg Q4HPRN PRN IV 12/12/24 11:00 12/13/24 11:03 4 MG Sodium Bicarbonate 650 mg QID PO 12/12/24 22:00 12/13/24 12:04 650 MG Furosemide 80 mg DAILY PO 12/12/24 18:30 12/13/24 09:44 80 MG Zirconium Oxide 10 gm DAILY PO 12/12/24 18:29 12/13/24 09:43 10 GM Examination: GENERAL:Normal, LUNGS:Normal, CVS:Normal, MSK:Abnormal, SKIN:Abnormal, NEURO:Normal, :Normal laboratory and microbiology Laboratory Tests 12/13/24 03:40 12/12/24 03:59 Test 12/13/24 03:40 Range/Units Serum Glucose 108 H 74-106 mg/dL Problem List/Assessment/Plan Problem List/Assessment/Plan Mavis on ckd5 --hemodynamic mediated hx of dialysis for three weeks,, currently is stopped in [facility] Bilateral lower extremity cellulitis Metabolic acidosis Hypertension Hyperkalemia Recommendations No indication for urgent dialysis here patient is visiting from [place] he said he is going back soon to [place] next week he has an appointment with his doctor on December 16 Sodium bicarbonate as ordered---continue after discharge Lokelma 10 g daily currently and after discharge Antibiotics per medical team for cellulitis recommend renal dosing Blood pressure control Lasix 80 mg daily continue on discharge We will follow closely Kidney ultrasound no hydronephrosis I have informed patient that he should follow with development manager as soon as possible when he goes to [place] He will need dialysis in near future Plan discussed with: Patient My Orders My Orders Orders - YOSEF HUANG MD Procedure Category Date Status Time Sodium Bicarb Tab PHA 12/12/24 In Process 22:00 Sodium Zirconium PHA 12/12/24 In Process Cyclosilicate 18:29 Furosemide Tablet PHA 12/12/24 In Process (Lasix Tablet) 18:30 YOSEF HUANG MD Dec 13, 2024 17:43
[2024-12-14] VITALS (8 sets, daily range): BP systolic 133–145; BP diastolic 56–67; PULSE 66–87; RESP 16–18; TEMP 97.6–98.6; O2SAT 95–98
[2024-12-14 08:06] LABS: Anion Gap 10 (5-15); Sodium 141 mmol/L (136-145)
[2024-12-14 08:08] LABS: Calcium 9.1 mg/dL (8.7-10.4)
[2024-12-14 08:12] LABS: BUN/Creatinine Ratio 13.9 (10.0-20.0); Glucose 97 mg/dL (74-106)
[2024-12-14 08:13] LABS: Carbon Dioxide 20 mmol/L (20-31); Chloride 111 mmol/L (98-107)
[2024-12-14 08:14] LABS: Blood Urea Nitrogen 83 mg/dL (9-23)
--- NOTE | 2024-12-14 12:53 | DVHPN2 ---
Progress Note Date Seen: Dec 14, 2024 Medical Necessity Reason Pt with a Central, PICC or Fol: No Subjective Patient reports: No new complaints Other Systems: Patient seen and examined by myself today in follow-up Objective vital signs Vital Sign Date Time Temp Pulse Resp B/P (MAP) Pulse Ox O2 Delivery O2 Flow Rate FiO2 12/14/24 11:34 140/64 12/14/24 09:00 98.6 83 95 98.6 12/14/24 05:00 18 12/13/24 20:00 Room Air* 0 21 Total Intake and Output 12/13/24 12/13/24 12/14/24 14:59 22:59 06:59 Intake Total 100 ml 2080 ml 360 ml Output Total 800 ml 400 ml Balance 100 ml 1280 ml -40 ml medications Current Medications Medications Dose Ordered Sig/Mily Route Start Time Stop Time Status Last Admin Dose Admin Sodium Chloride 1,000 ml @ 60 mls/hr [id number] IV 12/11/24 22:00 12/14/24 00:00 60 MLS/HR Acetaminophen/ Hydrocodone Bitart 1 tab Q4HP PRN PO 12/11/24 22:00 12/11/24 23:49 1 TAB Ondansetron HCl 4 mg Q4HP PRN IV 12/11/24 22:00 12/12/24 16:13 4 MG Docusate Sodium 100 mg BIDPRN PRN PO 12/11/24 22:00 Acetaminophen 650 mg Q6HP PRN PO 12/11/24 22:00 Vancomycin HCl 0 ml @ 0 mls/hr UD IV 12/11/24 22:15 Hydralazine HCl 10 mg Q6HP PRN IV 12/11/24 22:30 12/12/24 09:51 10 MG Nitroglycerin 0.4 mg Q5MINP PRN SL 12/11/24 23:45 Morphine Sulfate 2 mg Q30M PRN IV 12/11/24 23:45 Heparin Sodium (Porcine) 5,000 units Q12HR SC 12/12/24 10:00 12/13/24 21:58 5,000 UNITS Morphine Sulfate 4 mg Q4HPRN PRN IV 12/12/24 11:00 12/13/24 20:52 4 MG Sodium Bicarbonate 650 mg QID PO 12/12/24 22:00 12/14/24 05:52 650 MG Furosemide 80 mg DAILY PO 12/12/24 18:30 12/14/24 11:34 80 MG Zirconium Oxide 10 gm DAILY PO 12/12/24 18:29 12/13/24 09:43 10 GM Examination: LUNGS:Normal, CVS:Normal, MSK:Normal laboratory and microbiology Laboratory Tests 12/14/24 07:10 12/12/24 03:59 Test 12/14/24 07:10 Range/Units Serum Glucose 97 74-106 mg/dL Microbiology Date/Time Source Procedure Growth Status 12/13/24 12:37 Blood Blood Culture - Preliminary NO GROWTH AFTER 24 HOURS OF INCUBATION. Resulted 12/13/24 12:32 Leg Right Gram Stain - Final Resulted 12/13/24 12:32 Leg Right Wound Culture - Preliminary Resulted Problem List/Assessment/Plan Problem List/Assessment/Plan Acute kidney injury superimposed Chronic Kidney Disease stage 5 now end-stage renal disease Patient moved recently from [place] to live here in the [facility] with his sister Bilateral lower extremity cellulitis Metabolic acidosis Hypertension Hyperkalemia Anemia of chronic kidney disease Recommendations I discussed risk and benefit hemodialysis with the patient Consents for tunneled IJ hemodialysis catheter and hemodialysis Radiology consult for tunneled IJ hemodialysis catheter Hemodialysis after catheter placement Epogen [id number] IV post hemodialysis Check hep B surface antigen body and fender worker for outpatient hemodialysis chair time Renal diet We will continue to follow up Plan discussed with: Patient Dietary Evaluation Review Comments: renal standard diet if on HD, Renal specific diet if off HD, add CCHO-60 restricition if pt's glucosed is not under control. Expected Outcomes/Goals: less uremic syndrome, controlled glucose, gradually healed wounds. MESSI ALBERT MD Dec 14, 2024 12:53
--- NOTE | 2024-12-14 13:20 | DVHPN2 ---
Reviewed: Care Plan, H&P, Labs, Medications, Previous Orders, Radiology Changes from previous H/P or p: No Changes Eyes: No Pain, No Vision change, No Conjunctivae inflammation, No Eyelid inflammation, No Other, No Redness ENT: No Ear pain, No Ear discharge, No Nose pain, No Nose discharge, No Nose congestion, No Mouth pain, No Mouth swelling, No Throat pain, No Throat swelling, No Other Cardiovascular: No Chest Pain, No Palpitations, No Orthopnea, No Paroxysmal Noc. Dyspnea, No Edema, No Lt Headedness, No Other Respiratory: No Cough, No Dry, No Shortness of breath, No SOB with excertion, No Wheezing, No Hemoptysis, No Pleuritic Pain, No Sputum, No Other Gastrointestinal: No Nausea, No Vomiting, No Abdominal Pain, No Diarrhea, No Constipation, No Melena, No Hematochezia, No Other Genitourinary: No Dysuria, No Frequency, No Incontinence, No Hematuria, No Retention, No Other Musculoskeletal: No other, No neck pain, No shoulder pain, No arm pain, No back pain, No hand pain, No leg pain, No foot pain Skin: Rash (Bilateral lower extremity open wound.); No Lesions, No Jaundice, No Bruising, No Other Objective Vitals Vital Signs Date Time Temp Pulse Resp B/P (MAP) Pulse Ox O2 Delivery O2 Flow Rate FiO2 12/14/24 11:34 140/64 12/14/24 09:00 98.6 83 95 98.6 12/14/24 05:00 18 12/13/24 20:00 Room Air* 0 21 Intake/Output Intake and Output 12/14/24 07:00 Intake Total 2540 ml Output Total 1200 ml Balance 1340 ml Intake Oral 1840 ml IV Total 700 ml Output Urine Total 1200 ml Medications Current Medications Medications Dose Ordered Sig/Mily Route Start Time Stop Time Status Last Admin Dose Admin Sodium Chloride 1,000 ml @ 60 mls/hr [id number] IV 12/11/24 22:00 12/14/24 00:00 60 MLS/HR Acetaminophen/ Hydrocodone Bitart 1 tab Q4HP PRN PO 12/11/24 22:00 12/11/24 23:49 1 TAB Ondansetron HCl 4 mg Q4HP PRN IV 12/11/24 22:00 12/12/24 16:13 4 MG Docusate Sodium 100 mg BIDPRN PRN PO 12/11/24 22:00 Acetaminophen 650 mg Q6HP PRN PO 12/11/24 22:00 Vancomycin HCl 0 ml @ 0 mls/hr UD IV 12/11/24 22:15 Hydralazine HCl 10 mg Q6HP PRN IV 12/11/24 22:30 12/12/24 09:51 10 MG Nitroglycerin 0.4 mg Q5MINP PRN SL 12/11/24 23:45 Morphine Sulfate 2 mg Q30M PRN IV 12/11/24 23:45 Heparin Sodium (Porcine) 5,000 units Q12HR SC 12/12/24 10:00 12/13/24 21:58 5,000 UNITS Morphine Sulfate 4 mg Q4HPRN PRN IV 12/12/24 11:00 12/13/24 20:52 4 MG Sodium Bicarbonate 650 mg QID PO 12/12/24 22:00 12/14/24 05:52 650 MG Furosemide 80 mg DAILY PO 12/12/24 18:30 12/14/24 11:34 80 MG Zirconium Oxide 10 gm DAILY PO 12/12/24 18:29 12/13/24 09:43 10 GM Laboratory Results Laboratory Tests 12/12/24 03:59 12/14/24 07:10 Chemistry Test 12/14/24 07:10 Calcium Level 9.1 mg/dL (8.7-10.4) Magnesium Level Pending Phosphorus Level Pending Urinalysis Test 12/13/24 04:34 12/13/24 04:44 Urine Creatinine 71.73 mg/dL (30.0-125.0) Urine Sodium 41 mmol/L (40-220) Urine Total Protein 93.6 mg/dL (1-14) H Urine Color Colorless (Yellow) Urine Clarity Turbid (Clear) H Urine pH 5.5 (5.0-9.0) Urine Specific [place] 1.014 (1.001-1.035) Urine Protein 1+ (Negative) H Urine Ketones Negative (Negative) Urine Blood Trace /uL (Negative) H Urine Nitrite Negative (Negative) Urine Bilirubin Negative (Negative) Urine Urobilinogen Normal mg/dL (Negative) Urine Leukocyte Esterase 3+ /uL (Negative) Urine RBC 4 /hpf (0 - 3) Urine WBC Clumps Present /hpf (None Seen) Urine Microscopic WBC 472 /HPF (0-3) H Urine Squamous Epithelial Cells Few /hpf (<5) Urine Bacteria None seen /hpf (None Seen) Urine Yeast (Budding) Occasional /hpf (None Urine Glucose Normal mg/dL (Normal) Microbiology Microbiology Date/Time Source Procedure Growth Status 12/13/24 12:37 Blood Blood Culture - Preliminary NO GROWTH AFTER 24 HOURS OF INCUBATION. Resulted 12/13/24 12:32 Leg Right Gram Stain - Final Resulted 12/13/24 12:32 Leg Right Wound Culture - Preliminary Resulted Labs and/or images reviewed: Labs reviewed by me, Image(s) reviewed by me Assessment/Plan Assessment/Plan Sepsis secondary to bilateral lower leg cellulitis Bilateral Lower leg cellulitis: Vancomycin ESRD not on dialysis: Tunneled dialysis cath ordered and planning for dialysis, patient and the sister Bob agreed Acute hyperkalemia resolved DVT ruled out Hypertension Anemia of chronic disease Moderate malnutrition Severe hypothyroidism TSH 10.5: Synthroid Arterial ultrasound rule out peripheral arterial disease ordered Podiatric consult for Dr. Washburn Time spent 60 minutes Advanced care time 20 minutes Patient is full code Medication noncompliance Patient sister and POJuan Jose Rojas [phone] was at bedside in the emergency room Plan discussed with: Patient My Orders Orders - MURALI LOBATO MD Procedure Category Date Status Time Cleanse Wound With LINSEY 12/13/24 In Process Wound Clean 12:30 * Dietary Consult CONS 12/13/24 Transmitted 18:25 Date of Service: Dec 14, 2024 Billing Provider: MURALI LOBATO MD Common Visit Codes: [id number] CARE 30-74 MIN MURALI LOBATO MD Dec 14, 2024 13:20
[2024-12-14 13:41] LABS: Phosphorus 5.9 mg/dL (2.4-5.1)
[2024-12-14 14:31] LABS: Hemoglobin 8.2 g/dL (13.5-17.5)
--- NOTE | 2024-12-14 14:40 | DVH ---
Bilateral Lower Extremity Arterial Duplex Clinical History: Rule out peripheral arterial disease Comparison: None Technique: Duplex Doppler evaluation including color Doppler and spectral/pulsed waveform analysis of the lower extremity arteries was performed. Findings: RIGHT: Peak systolic velocities are as follows: [employer] 152 cm/s Deep femoral 73 cm/s SFA proximal 121 cm/s SFA mid-portion 141 cm/s SFA distal 131 cm/s Popliteal 146 cm/s Posterior tibial 182 cm/s Anterior tibial 71 cm/s Peroneal na cm/s Dorsalis pedis 71 cm/s The waveforms are monophasic with diastolic flow . LEFT: Peak systolic velocities are as follows: [employer] 182 cm/s Deep femoral 88 cm/s SFA proximal 119 cm/s SFA mid-portion 149 cm/s SFA distal 136 cm/s Popliteal 174 cm/s Posterior tibial 194 cm/s Anterior tibial 68 cm/s Peroneal na cm/s Dorsalis pedis 68 cm/s The waveforms are monophasic with diastolic flow . IMPRESSION: 20-49% stenosis of the bilateral common femoral artery and left popliteal artery and left posterior t ibial artery based on peak systolic velocity criteria. Bilateral abnormal monophasic arterial waveforms suggestive of underlying peripheral arterial disease . REFERENCE VALUES, [facility] ([facility]) vascular Imaging Lab Criteria: Peak systolic velocity ranges (in cm/sec) are as follows: <150 cm/s - <20 % stenosis 150-200 cm/s - 20-49% stenosis 200-300 cm/s - 50-75% stenosis >300 cm/s -> 75% stenosis
[2024-12-14 14:50] LABS: INR 1.08 (0.9-1.15); Partial Thromboplastin Time 31.3 SEC (24.5-34.5); Prothrombin Time 11.4 sec (9.3-11.8)
[2024-12-14] MEDS: VANCOMYCIN 500mg/100mL 100 ML IV ONE (16:30)
--- NOTE | 2024-12-14 16:37 | DVHINCON2 ---
Date Seen: Dec 14, 2024 Reason for Consultation Bilateral leg wounds History of Present Illness The patient is a 54-year-old male with past medical history of hypertension and thyroid disease who presented to [facility] ED with complaint of bilateral lower extremity nonhealing wound for the past months associated with generalized weakness. Patient reports wound get worse with drains, weeping, getting worse that prompted this visit. Patient states he resides at [facility] currently on strong antibiotics that were prescribed by his unattended ground sensor specialist and receives in-home care by a wound care nurse everyday. Patient also reports he was supposed to be on dialysis, but he was off for unknown reason. Patient was seen and evaluated in the ED, laboratory data shows WBC 8.5, hemoglobin 9.1, hematocrit 26.8, platelets 237 sodium 137, potassium 5.8, BUN 87, creatinine 7.13, GFR 8, glucose 109, blood pressure 167/52, heart rate 80, temperature 9 7.7 F, O2 saturation 97% on room air. Please see medication orders section in the computer. On my assessment, patient denied chest pain, no headache, no dizziness, no shortness of breaths, no nausea, no vomiting, no fever, no chills. Patient was admitted for further evaluation and medical management. Past Medical History See H&P Past Surgical History See H&P Allergies: Coded Allergies: Penicillins (Verified Allergy, Unknown, 12/11/24) Vital Signs Vital Signs Date Time Temp Pulse Resp B/P (MAP) Pulse Ox O2 Delivery O2 Flow Rate FiO2 12/14/24 13:00 98.1 77 17 133/56 (81) 98 98.1 12/14/24 08:00 Room Air* 0 21 Physical Exam DERMATOLOGIC EXAM: - Skin is dry and cool to the touch dry bilaterally. - Nails 1-5 of the bilateral foot are thickened, discolored, dystrophic, and tender to palpate with subungual debris - Hair loss noted to bilateral feet - bilateral lower extremity wounds with erythema VASCULAR EXAM: - DP and PT pulses are palpable bilaterally. - DISTRICT ENGINEER is brisk to all digits. - Feet are cool to touch compared to lower legs bilaterally. NEUROLOGIC EXAM: - Normal light touch sensation to the superficial peroneal, deep peroneal, sural, saphenous, and tibial nerve branches. - Protective sensation is diminished as tested with a 5.07 10g [place]Trudy bilaterally. MUSCULOSKELETAL EXAM: - No gross deformities - Muscle strength is 5/5 and active motion is pain-free and symmetrical bilaterally - No pain or crepitation with passive range of motion bilaterally to all major pedal joints Labs/Diagnostic Data Labs Test 12/14/24 14:10 12/14/24 07:10 12/13/24 04:44 12/13/24 04:34 Range/Units Hemoglobin 8.2 #L 13.5-17.5 g/dL Hematocrit 25.0 #L 41.0-53.0 % Prothrombin Time 11.4 9.3-11.8 sec Prothrombin Time INR 1.08 0.9-1.15 Activated Partial Thromboplast Time 31.3 24.5-34.5 SEC Sodium Level 141 136-145 mmol/L Potassium Level 5.0 3.5-5.1 mmol/L Chloride Level 111 H 98-107 mmol/L Carbon Dioxide Level 20 20-31 mmol/L Anion Gap 10 5-15 Blood Urea Nitrogen 83 *H 9-23 mg/dL Creatinine 5.97 H 0.700-1.30 mg/dL Glomerular Filtration Rate Calc 10 >90 mL/min BUN/Creatinine Ratio 13.9 10.0-20.0 Serum Glucose 97 74-106 mg/dL Calcium Level 9.1 8.7-10.4 mg/dL Phosphorus Level 5.9 H 2.4-5.1 mg/dL Magnesium Level 2.0 1.6-2.6 mg/dL Vitamin D 25-Hydroxy 14.2 L 30.0-100 ng/mL Parathyroid Hormone (Intact) 45.9 18.4-80.1 pg/mL Random Vancomycin Level 12.6 H 5-10 ug/mL Hepatitis B Surface Antigen Negative Negative Urine Color Colorless Yellow Urine Clarity Turbid H Clear Urine pH 5.5 5.0-9.0 Urine Specific [place] 1.014 1.001-1.035 Urine Protein 1+ H Negative Urine Ketones Negative Negative Urine Blood Trace H Negative /uL Urine Nitrite Negative Negative Urine Bilirubin Negative Negative Urine Urobilinogen Normal Negative mg/dL Urine Leukocyte Esterase 3+ Negative /uL Urine RBC 4 0 - 3 /hpf Urine WBC Clumps Present None Seen /hpf Urine Microscopic WBC 472 H 0-3 /HPF Urine Squamous Epithelial Cells Few <5 /hpf Urine Bacteria None seen None Seen /hpf Urine Yeast (Budding) Occasional None Seen /hpf Urine Glucose Normal Normal mg/dL Urine Creatinine 71.73 30.0-125.0 mg/dL Urine Sodium 41 40-220 mmol/L Urine Total Protein 93.6 H 1-14 mg/dL Test 12/12/24 03:59 12/11/24 16:34 Range/Units White Blood Count 6.8 4.4-10.8 10^3/uL Red Blood Count 2.99 L 4.5-5.90 10^6/uL Mean Corpuscular Volume 94.3 80.0-100.0 fL Mean Corpuscular Hemoglobin 33.0 H 28.0-32.0 pg Mean Corpuscular Hemoglobin Concent 35.0 32.0-36.0 g/dL Red Cell Distribution Width 15.6 H 11.8-14.3 % Platelet Count 262 140-450 10^3/uL Mean Platelet Volume 7.2 6.9-10.8 fL Neutrophils (%) (Auto) 73.2 37.0-80.0 % Lymphocytes (%) (Auto) 13.2 10.0-50.0 % Monocytes (%) (Auto) 6.4 0.0-12.0 % Eosinophils (%) (Auto) 6.5 0.0-7.0 % Basophils (%) (Auto) 0.7 0.0-2.0 % Neutrophils # (Auto) 5.0 1.6-8.6 10 ^3/uL Lymphocytes # (Auto) 0.9 0.4-5.4 10 ^3/uL Monocytes # (Auto) 0.4 0-1.3 10 ^3/uL Eosinophils # (Auto) 0.4 0-0.8 10 ^3/uL Basophils # (Auto) 0 0-0.2 10 ^3/uL Nucleated Red Blood Cells 0.0 % Total Bilirubin < 0.2 L 0.2-1.0 mg/dL Aspartate Amino Transferase (AST) 15 13-40 U/L Alanine Aminotransferase (ALT) < 9 7-40 U/L Alkaline Phosphatase 57 46-116 U/L Total Protein 7.2 5.7-8.2 g/dL Albumin 3.9 3.2-4.8 g/dL Lactic Acid Level 0.8 0.4-2.0 mmol/L Thyroid Stimulating Hormone (TSH) 10.52 H 0.55-4.78 uIU/mL Microbiology Date/Time Source Procedure Growth Status 12/13/24 12:37 Blood Blood Culture - Preliminary NO GROWTH AFTER 24 HOURS OF INCUBATION. Resulted 12/13/24 12:32 Leg Right Gram Stain - Final Resulted 12/13/24 12:32 Leg Right Wound Culture - Preliminary Resulted Problems(with codes): (1) Hyperkalemia (2) Antibiotic-resistant bacterial infection (3) Acute renal failure superimposed on chronic kidney disease (4) Open wound of both lower extremities Plan/Recommendation ASSESSMENT: Patient is a 54 year old seen on the floor for a worsening ulcer PLAN: - The patients chart was reviewed, clinical findings were discussed with the patient, the etiologies of the conditions were discussed in detail, and a treatment plan was agreed to at this time, with both oral and written instructions provided. - reviewed advanced imaging - discussed plan is to perform an incision and debridement - patient will be NPO at midnight - take him to the OR today - we will get cultures in the OR - can weightbear as tolerated All questions were answered and concerns addressed to the patient's satisfaction. The patient was given the phone number to the clinic and was told how to make contact with the clinic should any concerns or questions arise. Patient understands that if any questions or concerns arise prior to the next appointment, we should be contacted immediately. FOLLOW-UP: Continue to follow while inpatient Plan discussed with: Patient Date of Service: Dec 14, 2024 Billing Provider: HOLLAND ROTHMAN DPM Common Visit Codes: CONSULT ONLY Consultation Codes: [id number] CONSULT <80MIN HOLLAND ROTHMAN DPM Dec 14, 2024 16:37
[2024-12-15] VITALS (8 sets, daily range): BP systolic 130–163; BP diastolic 59–74; PULSE 63–75; RESP 16–18; TEMP 97.6–98.1; O2SAT 93–98
[2024-12-15] MEDS: SODIUM CHL 0.9% 1000 ML BAG XX ONE (07:00)
[2024-12-15] MEDS: ceFAZolin 2 GM/D5W100ml 100 ML IV ONE (11:51)
[2024-12-15] MEDS: BUPIVACAINE HCL 0.25% P/F 10 ML VIAL ONE (12:00)
[2024-12-15] MEDS: BUPIVACAINE 0.25% INJ 50ML VIAL ONE (12:01)
[2024-12-15] MEDS: ROPIVACAINE 0.5% (5MG/ML) 20ML AMPULE IJ ONE (12:07)
--- NOTE | 2024-12-15 12:07 | DVHINCON2 ---
Date Seen: Dec 15, 2024 Reason for Consultation Bilateral wounds History of Present Illness The patient is a 54-year-old male with past medical history of hypertension and thyroid disease who presented to [facility] ED with complaint of bilateral lower extremity nonhealing wound for the past months associated with generalized weakness. Patient reports wound get worse with drains, weeping, getting worse that prompted this visit. Patient states he resides at [facility] currently on strong antibiotics that were prescribed by his international marketing specialist and receives in-home care by a wound care nurse everyday. Patient also reports he was supposed to be on dialysis, but he was off for unknown reason. Patient was seen and evaluated in the ED, laboratory data shows WBC 8.5, hemoglobin 9.1, hematocrit 26.8, platelets 237 sodium 137, potassium 5.8, BUN 87, creatinine 7.13, GFR 8, glucose 109, blood pressure 167/52, heart rate 80, temperature 97. 7 F, O2 saturation 97% on room air. Please see medication orders section in the computer. On my assessment, patient denied chest pain, no headache, no dizziness, no shortness of breaths, no nausea, no vomiting, no fever, no chills. Patient was admitted for further evaluation and medical management. Past Medical History See H&P Past Surgical History See H&P Allergies: Coded Allergies: Penicillins (Verified Allergy, Unknown, 12/11/24) Vital Signs Vital Signs Date Time Temp Pulse Resp B/P (MAP) Pulse Ox O2 Delivery O2 Flow Rate FiO2 12/15/24 09:17 74 18 112/58 12/15/24 09:08 97.7 95 97.7 12/15/24 08:00 Room Air* 0 21 Physical Exam DERMATOLOGIC EXAM: - Skin is dry and cool to the touch dry bilaterally. - Nails 1-5 of the bilateral foot are thickened, discolored, dystrophic, and tender to palpate with subungual debris - Hair loss noted to bilateral feet - bilateral lower extremity wounds with erythema VASCULAR EXAM: - DP and PT pulses are palpable bilaterally. - STATE SUPERINTENDENT [employer] SCHOOLS is brisk to all digits. - Feet are cool to touch compared to lower legs bilaterally. NEUROLOGIC EXAM: - Normal light touch sensation to the superficial peroneal, deep peroneal, sural, saphenous, and tibial nerve branches. - Protective sensation is diminished as tested with a 5.07 10g [place]-Trudy bilaterally. MUSCULOSKELETAL EXAM: - No gross deformities - Muscle strength is 5/5 and active motion is pain-free and symmetrical bilaterally - No pain or crepitation with passive range of motion bilaterally to all major pedal joints Labs/Diagnostic Data Labs Test 12/14/24 14:10 12/14/24 07:10 12/13/24 04:44 12/13/24 04:34 Range/Units Hemoglobin 8.2 #L 13.5-17.5 g/dL Hematocrit 25.0 #L 41.0-53.0 % Prothrombin Time 11.4 9.3-11.8 sec Prothrombin Time INR 1.08 0.9-1.15 Activated Partial Thromboplast Time 31.3 24.5-34.5 SEC Sodium Level 141 136-145 mmol/L Potassium Level 5.0 3.5-5.1 mmol/L Chloride Level 111 H 98-107 mmol/L Carbon Dioxide Level 20 20-31 mmol/L Anion Gap 10 5-15 Blood Urea Nitrogen 83 *H 9-23 mg/dL Creatinine 5.97 H 0.700-1.30 mg/dL Glomerular Filtration Rate Calc 10 >90 mL/min BUN/Creatinine Ratio 13.9 10.0-20.0 Serum Glucose 97 74-106 mg/dL Calcium Level 9.1 8.7-10.4 mg/dL Phosphorus Level 5.9 H 2.4-5.1 mg/dL Magnesium Level 2.0 1.6-2.6 mg/dL Vitamin D 25-Hydroxy 14.2 L 30.0-100 ng/mL Parathyroid Hormone (Intact) 45.9 18.4-80.1 pg/mL Random Vancomycin Level 12.6 H 5-10 ug/mL Hepatitis B Surface Antigen Negative Negative Urine Color Colorless Yellow Urine Clarity Turbid H Clear Urine pH 5.5 5.0-9.0 Urine Specific [place] 1.014 1.001-1.035 Urine Protein 1+ H Negative Urine Ketones Negative Negative Urine Blood Trace H Negative /uL Urine Nitrite Negative Negative Urine Bilirubin Negative Negative Urine Urobilinogen Normal Negative mg/dL Urine Leukocyte Esterase 3+ Negative /uL Urine RBC 4 0 - 3 /hpf Urine WBC Clumps Present None Seen /hpf Urine Microscopic WBC 472 H 0-3 /HPF Urine Squamous Epithelial Cells Few <5 /hpf Urine Bacteria None seen None Seen /hpf Urine Yeast (Budding) Occasional None Seen /hpf Urine Glucose Normal Normal mg/dL Urine Creatinine 71.73 30.0-125.0 mg/dL Urine Sodium 41 40-220 mmol/L Urine Total Protein 93.6 H 1-14 mg/dL Test 12/12/24 03:59 12/11/24 16:34 Range/Units White Blood Count 6.8 4.4-10.8 10^3/uL Red Blood Count 2.99 L 4.5-5.90 10^6/uL Mean Corpuscular Volume 94.3 80.0-100.0 fL Mean Corpuscular Hemoglobin 33.0 H 28.0-32.0 pg Mean Corpuscular Hemoglobin Concent 35.0 32.0-36.0 g/dL Red Cell Distribution Width 15.6 H 11.8-14.3 % Platelet Count 262 140-450 10^3/uL Mean Platelet Volume 7.2 6.9-10.8 fL Neutrophils (%) (Auto) 73.2 37.0-80.0 % Lymphocytes (%) (Auto) 13.2 10.0-50.0 % Monocytes (%) (Auto) 6.4 0.0-12.0 % Eosinophils (%) (Auto) 6.5 0.0-7.0 % Basophils (%) (Auto) 0.7 0.0-2.0 % Neutrophils # (Auto) 5.0 1.6-8.6 10 ^3/uL Lymphocytes # (Auto) 0.9 0.4-5.4 10 ^3/uL Monocytes # (Auto) 0.4 0-1.3 10 ^3/uL Eosinophils # (Auto) 0.4 0-0.8 10 ^3/uL Basophils # (Auto) 0 0-0.2 10 ^3/uL Nucleated Red Blood Cells 0.0 % Total Bilirubin < 0.2 L 0.2-1.0 mg/dL Aspartate Amino Transferase (AST) 15 13-40 U/L Alanine Aminotransferase (ALT) < 9 7-40 U/L Alkaline Phosphatase 57 46-116 U/L Total Protein 7.2 5.7-8.2 g/dL Albumin 3.9 3.2-4.8 g/dL Lactic Acid Level 0.8 0.4-2.0 mmol/L Thyroid Stimulating Hormone (TSH) 10.52 H 0.55-4.78 uIU/mL Microbiology Date/Time Source Procedure Growth Status 12/13/24 12:37 Blood Blood Culture - Preliminary NO GROWTH AFTER 24 HOURS OF INCUBATION. Resulted 12/13/24 12:32 Leg Right Gram Stain - Final Resulted 12/13/24 12:32 Wound Culture - Preliminary Pseudomonas aeruginosa Resulted Problems(with codes): (1) Hyperkalemia (2) Antibiotic-resistant bacterial infection (3) Acute renal failure superimposed on chronic kidney disease (4) Open wound of both lower extremities Plan/Recommendation ASSESSMENT: Patient is a 54 year old seen on the floor for a worsening ulcer PLAN: - The patients chart was reviewed, clinical findings were discussed with the patient, the etiologies of the conditions were discussed in detail, and a treatment plan was agreed to at this time, with both oral and written instructions provided. - reviewed advanced imaging - discussed plan is to perform an incision and debridement - patient will be NPO at midnight - take him to the OR today - we will get cultures in the OR - can weightbear as tolerated All questions were answered and concerns addressed to the patient's satisfaction. The patient was given the phone number to the clinic and was told how to make contact with the clinic should any concerns or questions arise. P atient understands that if any questions or concerns arise prior to the next appointment, we should be contacted immediately. FOLLOW-UP: Continue to follow while inpatient Plan discussed with: Patient Date of Service: Dec 15, 2024 Billing Provider: HOLLAND ROTHMAN DPM Common Visit Codes: [id number] INP/OBS CARE(MOD) HOLLAND ROTHMAN DPM Dec 15, 2024 12:07
[2024-12-15] MEDS ORDERED: fentaNYL CITRATE 100 MCG/2 ML VL ONE (12:13)
[2024-12-15] MEDS ORDERED: MIDAZOLAM HCL 2MG/2ML 2ml VIAL (1mg/ml) ONE (12:13)
[2024-12-15] MEDS ORDERED: PROPOFOL 10 MG/ML 20 ML IV ONE (12:33)
[2024-12-15] MEDS ORDERED: DexAMETHasone SOD PHOS 10MG/1ML VIAL INJ ONE (12:33)
--- NOTE | 2024-12-15 12:57 | DVHOP2 ---
Operative Report - 2 Report Details Date: 12/15/24 Preop Diagnosis: 1. Bilateral leg chronic ulceration 2. Bilateral leg abscess 3. Bilateral leg cellulitis Postop Diagnosis: Same as preop Surgeon: Holland Rothman MD Anesthesiologist: See anesthesia Anesthesia: Mac Consent: The patient was informed of the risks and benefits of the procedure. These include but are not limited to complications of anesthesia, postoperative infection, incomplete relief of symptoms, recurrence of symptoms, damage to blood vessels, nerves and tendons, deep venous thrombosis, pulmonary embolism and possible need for repeat surgery in the future. Complications: None Estimated Blood Loss: Minimal Fluids: See anesthesia Findings: Consistent with diagnosis Indications for Surgery: Worsening bilateral lower extremity ulcerations Name of Procedure Performed 1. Left leg I&D (51924) 2. Right leg I&D (88072) Procedure Details Procedure Details: PRE-PROCEDURE INFORMATION: In the pre-op holding area, the extremity to be operated on was clearly marked and the patient verified correct laterality of the marking. The patient was transferred to the OR table and placed in a supine position. A timeout was performed in which identification of the correct patient, procedure, location, and materials was done. The bilateral foot and leg were prepped and draped in normal sterile fashion. DESCRIPTION OF PROCEDURE: Attention was directed to the left leg where area of fluctuance was noted. An incision was made over this area and was deepened through blunt dissection. The incision was deepened to the level of abscess and bone. Care was taken to the dissection to avoid any neurovascular and tendinous structures. The incision was fascia, and the abscess appeared to be purulent fluid consistent with pus. All fibrotic and necrotic tissue was then removed. Using a curette, debridement of the remainign tissue was performed.. After the abscess was drained, the area was irrigated with 3 L normal saline using cysto tubing. Deep cultures were then obtained from the wound. The area was then i nspected and any areas of tracking, especially along the tendons were also drained. Attention was directed to the right leg where area of fluctuance was noted. An incision was made over this area and was deepened through blunt dissection. The incision was deepened to the level of abscess and bone. Care was taken to the dissection to avoid any neurovascular and tendinous structures. The incision was fascia, and the abscess appeared to be purulent fluid consistent with pus. All fibrotic and necrotic tissue was then removed. Using a curette, debridement of the remainign tissue was performed.. After the abscess was drained, the area was irrigated with 3 L normal saline using cysto tubing. Deep cultures were then obtained from the wound. The area was then inspected and any areas of tracking, especially along the tendons were also drained. POSTOPERATIVE INFORMATION: The patient tolerated the above noted procedure and anesthesia well and was transferred to the PACU with vital signs stable, and vascular status intact with capillary refill intact to all digits. Patient will return to the floor and continue IV antibiotics. Patient will need outpatient wound care once discharge. No other procedures indicated at this point Condition Good Disposition Still a Patient HOLLAND ROTHMAN DPM Dec 15, 2024 12:57
[2024-12-15] MEDS: HYDROmorphone HCL 2 MG/ML VL/or syr IV PRN (13:13)
[2024-12-15] MEDS: HYDROmorphone HCL 2 MG/ML VL/or syr ONE (13:13)
[2024-12-15] MEDS: ONDANSETRON HCL 4 MG/2 ML VIAL IV ONE (13:15)
--- NOTE | 2024-12-15 13:32 | DVHPN2 ---
Reviewed: Care Plan, H&P, Labs, Medications, Previous Orders, Radiology Changes from previous H/P or p: No Changes Eyes: No Pain, No Vision change, No Conjunctivae inflammation, No Eyelid inflammation, No Other, No Redness ENT: No Ear pain, No Ear discharge, No Nose pain, No Nose discharge, No Nose congestion, No Mouth pain, No Mouth swelling, No Throat pain, No Throat swelling, No Other Cardiovascular: No Chest Pain, No Palpitations, No Orthopnea, No Paroxysmal Noc. Dyspnea, No Edema, No Lt Headedness, No Other Respiratory: No Cough, No Dry, No Shortness of breath, No SOB with excertion, No Wheezing, No Hemoptysis, No Pleuritic Pain, No Sputum, No Other Gastrointestinal: No Nausea, No Vomiting, No Abdominal Pain, No Diarrhea, No Constipation, No Melena, No Hematochezia, No Other Genitourinary: No Dysuria, No Frequency, No Incontinence, No Hematuria, No Retention, No Other Musculoskeletal: No other, No neck pain, No shoulder pain, No arm pain, No back pain, No hand pain, No leg pain, No foot pain Skin: Rash (Bilateral lower extremity open wound.); No Lesions, No Jaundice, No Bruising, No Other Objective Vitals Vital Signs Date Time Temp Pulse Resp B/P (MAP) Pulse Ox O2 Delivery O2 Flow Rate FiO2 12/15/24 13:00 98 Room Air 12/15/24 13:00 98 12/15/24 09:17 74 18 112/58 12/15/24 09:08 97.7 97.7 12/15/24 08:00 0 Intake/Output Intake and Output 12/15/24 07:00 Intake Total 1298 ml Output Total 300 ml Balance 998 ml Intake Oral 1298 ml Output Urine Total 300 ml # Voids 2 # Bowel Movements 2 Medications Current Medications Medications Dose Ordered Sig/Mily Route Start Time Stop Time Status Last Admin Dose Admin Sodium Chloride 1,000 ml @ 60 mls/hr [id number] IV 12/11/24 22:00 12/14/24 17:09 60 MLS/HR Acetaminophen/ Hydrocodone Bitart 1 tab Q4HP PRN PO 12/11/24 22:00 12/11/24 23:49 1 TAB Ondansetron HCl 4 mg Q4HP PRN IV 12/11/24 22:00 12/15/24 08:47 4 MG Docusate Sodium 100 mg BIDPRN PRN PO 12/11/24 22:00 Acetaminophen 650 mg Q6HP PRN PO 12/11/24 22:00 Vancomycin HCl 0 ml @ 0 mls/hr UD IV 12/11/24 22:15 Hydralazine HCl 10 mg Q6HP PRN IV 12/11/24 22:30 12/12/24 09:51 10 MG Nitroglycerin 0.4 mg Q5MINP PRN SL 12/11/24 23:45 Morphine Sulfate 2 mg Q30M PRN IV 12/11/24 23:45 Heparin Sodium (Porcine) 5,000 units Q12HR SC 12/12/24 10:00 12/15/24 08:51 5,000 UNITS Morphine Sulfate 4 mg Q4HPRN PRN IV 12/12/24 11:00 12/15/24 08:48 4 MG Sodium Bicarbonate 650 mg QID PO 12/12/24 22:00 12/15/24 06:15 650 MG Furosemide 80 mg DAILY PO 12/12/24 18:30 12/15/24 08:46 80 MG Zirconium Oxide 10 gm DAILY PO 12/12/24 18:29 12/15/24 08:46 10 GM Hydromorphone HCl 0.5 mg Q10M PRN IV 12/15/24 13:15 12/15/24 13:56 UNV Meropenem 50 ml @ 17 mls/hr DAILY IV 12/16/24 10:00 UNV Laboratory Results Laboratory Tests 12/12/24 03:59 12/14/24 07:10 12/14/24 14:10 Coagulation Test 12/14/24 14:10 Prothrombin Time 11.4 sec (9.3-11.8) Prothrombin Time INR 1.08 (0.9-1.15) Activated Partial Thromboplast Time 31.3 SEC (24.5-34.5) Urinalysis Test 12/13/24 04:34 12/13/24 04:44 Urine Creatinine 71.73 mg/dL (30.0-125.0) Urine Sodium 41 mmol/L (40-220) Urine Total Protein 93.6 mg/dL (1-14) H Urine Color Colorless (Yellow) Urine Clarity Turbid (Clear) H Urine pH 5.5 (5.0-9.0) Urine Specific [place] 1.014 (1.001-1.035) Urine Protein 1+ (Negative) H Urine Ketones Negative (Negative) Urine Blood Trace /uL (Negative) H Urine Nitrite Negative (Negative) Urine Bilirubin Negative (Negative) Urine Urobilinogen Normal mg/dL (Negative) Urine Leukocyte Esterase 3+ /uL (Negative) Urine RBC 4 /hpf (0 - 3) Urine WBC Clumps Present /hpf (None Seen) Urine Microscopic WBC 472 /HPF (0-3) H Urine Squamous Epithelial Cells Few /hpf (<5) Urine Bacteria None seen /hpf (None Seen) Urine Yeast (Budding) Occasional /hpf (None Urine Glucose Normal mg/dL (Normal) Microbiology Microbiology Date/Time Source Procedure Growth Status 12/13/24 12:37 Blood Blood Culture - Preliminary NO GROWTH AFTER 48 HOURS OF INCUBATION. Resulted 12/13/24 12:32 Leg Right Gram Stain - Final Resulted 12/13/24 12:32 Wound Culture - Preliminary Pseudomonas aeruginosa Resulted Labs and/or images reviewed: Labs reviewed by me, Image(s) reviewed by me Assessment/Plan Assessment/Plan Sepsis secondary to bilateral lower leg cellulitis wound cultures growing Pseudomonas, DC vancomycin start meropenem renal dose 500 mg IV daily Bilateral Lower leg cellulitis: Status post incision and drainage by Dr. Washburn ESRD not on dialysis: Tunneled dialysis cath ordered and planning for dialysis, patient and the sister Bob agreed Acute hyperkalemia resolved DVT ruled out Hypertension Anemia of chronic disease Moderate malnutrition Severe hypothyroidism TSH 10.5: Synthroid Arterial ultrasound rule out peripheral arterial disease ordered Podiatric consult for Dr. Washburn Time spent 60 minutes Advanced care time 20 minutes Patient is full code Medication noncompliance Patient sister and BENI Rojas [phone] was at bedside in the emergency room Per interventional radiology rn Kelsey patient refused dialysis cath placement Plan discussed with: Patient My Orders Orders - MURALI LOBATO MD Procedure Category Date Status Time Complete Blood Count LAB 12/15/24 Logged 05:00 Complete Blood Count LAB 12/16/24 Verified 05:00 Complete Blood Count LAB 12/17/24 Verified 05:00 Complete Blood Count LAB 12/18/24 Verified 05:00 Complete Blood Count LAB 12/19/24 Verified 05:00 Meropenem 500mg Ivpb PHA 12/15/24 Logged (Merrem 500mg/Ns) 13:30 Meropenem 500mg Ivpb PHA 12/16/24 Logged (Merrem 500mg/Ns) 10:00 Date of Service: Dec 15, 2024 Billing Provider: MURALI LOBATO MD Common Visit Codes: [id number] INP/OBS CARE(HIGH) MURALI LOBATO MD Dec 15, 2024 13:32
--- NOTE | 2024-12-15 15:37 | DVHPN2 ---
Progress Note Date Seen: Dec 15, 2024 Medical Necessity Reason Pt with a Central, PICC or Fol: No Subjective Patient reports: No new complaints Other Systems: Patient seen and examined by myself today in follow-up Objective vital signs Vital Sign Date Time Temp Pulse Resp B/P (MAP) Pulse Ox O2 Delivery O2 Flow Rate FiO2 12/15/24 13:40 72 12 160/70 (100) 97 12/15/24 13:00 98.1 98.1 12/15/24 13:00 Room Air 12/15/24 13:00 98 12/15/24 08:00 0 Total Intake and Output 12/14/24 12/14/24 12/15/24 15:00 23:00 07:00 Intake Total 1148 ml 150 ml Output Total 300 ml Balance 1148 ml -150 ml medications Current Medications Medications Dose Ordered Sig/Mily Route Start Time Stop Time Status Last Admin Dose Admin Sodium Chloride 1,000 ml @ 60 mls/hr [id number] IV 12/11/24 22:00 12/14/24 17:09 60 MLS/HR Acetaminophen/ Hydrocodone Bitart 1 tab Q4HP PRN PO 12/11/24 22:00 12/11/24 23:49 1 TAB Ondansetron HCl 4 mg Q4HP PRN IV 12/11/24 22:00 12/15/24 08:47 4 MG Docusate Sodium 100 mg BIDPRN PRN PO 12/11/24 22:00 Acetaminophen 650 mg Q6HP PRN PO 12/11/24 22:00 Vancomycin HCl 0 ml @ 0 mls/hr UD IV 12/11/24 22:15 Hydralazine HCl 10 mg Q6HP PRN IV 12/11/24 22:30 12/12/24 09:51 10 MG Nitroglycerin 0.4 mg Q5MINP PRN SL 12/11/24 23:45 Morphine Sulfate 2 mg Q30M PRN IV 12/11/24 23:45 Heparin Sodium (Porcine) 5,000 units Q12HR SC 12/12/24 10:00 12/15/24 08:51 5,000 UNITS Morphine Sulfate 4 mg Q4HPRN PRN IV 12/12/24 11:00 12/15/24 08:48 4 MG Sodium Bicarbonate 650 mg QID PO 12/12/24 22:00 12/15/24 06:15 650 MG Furosemide 80 mg DAILY PO 12/12/24 18:30 12/15/24 08:46 80 MG Zirconium Oxide 10 gm DAILY PO 12/12/24 18:29 12/15/24 08:46 10 GM Meropenem 50 ml @ 17 mls/hr DAILY IV 12/16/24 10:00 laboratory and microbiology Laboratory Tests 12/14/24 14:10 12/14/24 07:10 12/12/24 03:59 Test 12/14/24 07:10 Range/Units Serum Glucose 97 74-106 mg/dL Microbiology Date/Time Source Procedure Growth Status 12/13/24 12:37 Blood Blood Culture - Preliminary NO GROWTH AFTER 48 HOURS OF INCUBATION. Resulted 12/13/24 12:32 Leg Right Gram Stain - Final Resulted 12/13/24 12:32 Wound Culture - Preliminary Pseudomonas aeruginosa Resulted Problem List/Assessment/Plan Problem List/Assessment/Plan Acute kidney injury superimposed Chronic Kidney Disease stage 5 now end-stage renal disease Patient moved recently from [place] to live here in the [facility] with his sister Bilateral lower extremity cellulitis Metabolic acidosis Hypertension Hyperkalemia Anemia of chronic kidney disease Recommendations I discussed risk and benefit hemodialysis with the patient Consents for tunneled IJ hemodialysis catheter and hemodialysis Radiology consult for tunneled IJ hemodialysis catheter Hemodialysis after catheter placement Patient change his mind after I talk to me patient states he is waiting for his sister to approve dialysis Epogen [id number] IV post hemodialysis Check hep B surface antigen migratory worker for outpatient hemodialysis chair time Renal diet We will continue to follow up Plan discussed with: Patient My Orders My Orders Orders - MESSI ALBERT MD Procedure Category Date Status Time * Radiologist Consult CONS 12/15/24 Transmitted 11:02 Dietary Evaluation Review Comments: renal standard diet if on HD, Renal specific diet if off HD, add CCHO-60 restricition if pt's glucosed is not under control. Expected Outcomes/Goals: less uremic syndrome, controlled glucose, gradually healed wounds. MESSI ALBERT MD Dec 15, 2024 15:37
[2024-12-15 15:48] LABS: Basophils # (auto) 0 10 ^3/uL (0-0.2); Basophils % (auto) 0.3 % (0.0-2.0); Eosinophils # (auto) 0.1 10 ^3/uL (0-0.8); Eosinophils % (auto) 2.1 % (0.0-7.0); Hematocrit 27.7 % (41.0-53.0); Lymphocytes # (auto) 0.4 10 ^3/uL (0.4-5.4); Lymphocytes % (auto) 5.5 % (10.0-50.0); Mean Corpuscular Hemoglobin 31.6 pg (28.0-32.0); Mean Corpuscular Hgb Conc. 32.5 g/dL (32.0-36.0); Mean Corpuscular Volume 97.2 fL (80.0-100.0); Monocytes # (auto) 0.1 10 ^3/uL (0-1.3); Monocytes % (auto) 1.2 % (0.0-12.0); Neutrophils # (auto) 6.5 10 ^3/uL (1.6-8.6); Neutrophils % (auto) 90.9 % (37.0-80.0); Nucleated Red Blood Cells % 0.1 %; Platelet Count (auto) 184 10^3/uL (140-450); Red Blood Cells 2.85 10^6/uL (4.5-5.90); Red Cell Distribution Width 15.1 % (11.8-14.3); White Blood Cell 7.2 10^3/uL (4.4-10.8)
[2024-12-15 15:56] LABS: Anion Gap 9 (5-15); Calcium 9.1 mg/dL (8.7-10.4); Carbon Dioxide 20 mmol/L (20-31); Sodium 141 mmol/L (136-145)
[2024-12-15 16:02] LABS: BUN/Creatinine Ratio 17.6 (10.0-20.0)
[2024-12-15 16:03] LABS: Chloride 112 mmol/L (98-107); Glucose 124 mg/dL (74-106); Potassium 5.4 mmol/L (3.5-5.1)
[2024-12-15 16:04] LABS: Blood Urea Nitrogen 89 mg/dL (9-23)
[2024-12-15] MEDS: MEROPENEM 500MG IVPB 50 ML IV ONE (18:03)
[2024-12-15] MEDS ORDERED: LEVO500I7 IV (18:03)
[2024-12-15] MEDS: VANCOMYCIN 500mg/100mL 100 ML IV ONE (18:08)
[2024-12-15] MEDS: EPOETIN ALFA-EPBX 10,000 UNIT/1ML VIAL SC ONE (21:00)
[2024-12-16 01:00] VITALS: BP 161/64; PULSE 63; RESP 17; TEMP 97.9; O2SAT 98
[2024-12-16 05:00] VITALS: BP 140/61; PULSE 60; RESP 17; TEMP 97.8; O2SAT 96
[2024-12-16 08:00] VITALS: PULSE 76; RESP 18; O2SAT 96
[2024-12-16 09:11] VITALS: BP 141/56; PULSE 58; RESP 17; TEMP 98.7; O2SAT 97
[2024-12-16] MEDS: MEROPENEM 500MG IVPB 50 ML IV SCH (09:23)
[2024-12-16] MEDS: DOCUSATE SOD 100 MG CAP PO PRN (09:25)
--- NOTE | 2024-12-16 11:27 | DVHPN2 ---
Progress Note Date Seen: Dec 16, 2024 Medical Necessity Reason Pt with a Central, PICC or Fol: No Subjective Patient reports: No new complaints Other Systems: Patient seen and examined by myself today in follow-up Objective vital signs Vital Sign Date Time Temp Pulse Resp B/P (MAP) Pulse Ox O2 Delivery O2 Flow Rate FiO2 12/16/24 09:26 98 18 147/71 12/16/24 09:11 98.7 97 98.7 12/16/24 08:00 Room Air* 0 21 Total Intake and Output 12/15/24 12/15/24 12/16/24 15:00 23:00 07:00 Intake Total 5 ml 500 ml 700 ml Output Total 300 ml Balance 5 ml 500 ml 400 ml medications Current Medications Medications Dose Ordered Sig/Mily Route Start Time Stop Time Status Last Admin Dose Admin Sodium Chloride 1,000 ml @ 60 mls/hr [id number] IV 12/11/24 22:00 12/16/24 02:00 60 MLS/HR Acetaminophen/ Hydrocodone Bitart 1 tab Q4HP PRN PO 12/11/24 22:00 12/11/24 23:49 1 TAB Ondansetron HCl 4 mg Q4HP PRN IV 12/11/24 22:00 12/16/24 09:25 4 MG Docusate Sodium 100 mg BIDPRN PRN PO 12/11/24 22:00 12/16/24 09:25 100 MG Acetaminophen 650 mg Q6HP PRN PO 12/11/24 22:00 Vancomycin HCl 0 ml @ 0 mls/hr UD IV 12/11/24 22:15 Hydralazine HCl 10 mg Q6HP PRN IV 12/11/24 22:30 12/12/24 09:51 10 MG Nitroglycerin 0.4 mg Q5MINP PRN SL 12/11/24 23:45 Morphine Sulfate 2 mg Q30M PRN IV 12/11/24 23:45 Heparin Sodium (Porcine) 5,000 units Q12HR SC 12/12/24 10:00 12/16/24 09:27 5,000 UNITS Morphine Sulfate 4 mg Q4HPRN PRN IV 12/12/24 11:00 12/16/24 09:26 4 MG Sodium Bicarbonate 650 mg QID PO 12/12/24 22:00 12/16/24 05:33 650 MG Furosemide 80 mg DAILY PO 12/12/24 18:30 12/16/24 09:24 80 MG Zirconium Oxide 10 gm DAILY PO 12/12/24 18:29 12/16/24 09:25 10 GM Meropenem 50 ml @ 17 mls/hr DAILY IV 12/16/24 10:00 12/16/24 09:23 17 MLS/HR Examination: LUNGS:Normal, CVS:Normal, MSK:Abnormal laboratory and microbiology Laboratory Tests 12/15/24 15:03 Test 12/15/24 15:03 Range/Units Serum Glucose 124 H 74-106 mg/dL Microbiology Date/Time Source Procedure Growth Status 12/15/24 12:45 Leg Left Gram Stain - Final Resulted 12/15/24 12:45 Leg Left Anaerobic Culture Pending Resulted 12/15/24 12:45 Leg Left Aerobic Culture - Preliminary Resulted 12/13/24 12:37 Blood Blood Culture - Preliminary NO GROWTH AFTER 48 HOURS OF INCUBATION. Resulted Problem List/Assessment/Plan Problem List/Assessment/Plan Acute kidney injury superimposed Chronic Kidney Disease stage 5 now end-stage renal disease Patient moved recently from [place] to live here in the [facility] with his sister Bilateral lower extremity cellulitis Metabolic acidosis Hypertension Hyperkalemia Anemia of chronic kidney disease Recommendations Patient refused hemodialysis again Medical treatment for hyperkalemia Blood pressure control Conservative management Renal diet We will continue to follow up Plan discussed with: Patient My Orders My Orders Orders - MESSI ALBERT MD Procedure Category Date Status Time Sodium Zirconium PHA 12/16/24 Verified Cyclosilicate 11:30 Dietary Evaluation Review Comments: renal standard diet if on HD, Renal specific diet if off HD, add CCHO-60 restricition if pt's glucosed is not under control. Expected Outcomes/Goals: less uremic syndrome, controlled glucose, gradually healed wounds. MESSI ALBERT MD Dec 16, 2024 11:27
[2024-12-16 13:00] VITALS: BP 133/63; PULSE 61; RESP 20; TEMP 98.3; O2SAT 98
--- NOTE | 2024-12-16 13:43 | DVHPN2 ---
Reviewed: Care Plan, H&P, Labs, Medications, Previous Orders, Radiology Changes from previous H/P or p: No Changes Eyes: No Pain, No Vision change, No Conjunctivae inflammation, No Eyelid inflammation, No Other, No Redness ENT: No Ear pain, No Ear discharge, No Nose pain, No Nose discharge, No Nose congestion, No Mouth pain, No Mouth swelling, No Throat pain, No Throat swelling, No Other Cardiovascular: No Chest Pain, No Palpitations, No Orthopnea, No Paroxysmal Noc. Dyspnea, No Edema, No Lt Headedness, No Other Respiratory: No Cough, No Dry, No Shortness of breath, No SOB with excertion, No Wheezing, No Hemoptysis, No Pleuritic Pain, No Sputum, No Other Gastrointestinal: No Nausea, No Vomiting, No Abdominal Pain, No Diarrhea, No Constipation, No Melena, No Hematochezia, No Other Genitourinary: No Dysuria, No Frequency, No Incontinence, No Hematuria, No Retention, No Other Musculoskeletal: No other, No neck pain, No shoulder pain, No arm pain, No back pain, No hand pain, No leg pain, No foot pain Skin: Rash (Bilateral lower extremity open wound.); No Lesions, No Jaundice, No Bruising, No Other Objective Vitals Vital Signs Date Time Temp Pulse Resp B/P (MAP) Pulse Ox O2 Delivery O2 Flow Rate FiO2 12/16/24 10:00 58 18 141/56 12/16/24 09:11 98.7 97 98.7 12/16/24 08:00 Room Air* 0 21 Intake/Output Intake and Output 12/16/24 07:00 Intake Total 1205 ml Output Total 300 ml Balance 905 ml Intake Oral 1200 ml IV Total 5 ml Output Urine Total 300 ml # Voids 2 # Bowel Movements 1 Medications Current Medications Medications Dose Ordered Sig/Mily Route Start Time Stop Time Status Last Admin Dose Admin Sodium Chloride 1,000 ml @ 60 mls/hr [id number] IV 12/11/24 22:00 12/16/24 02:00 60 MLS/HR Acetaminophen/ Hydrocodone Bitart 1 tab Q4HP PRN PO 12/11/24 22:00 12/16/24 12:32 1 TAB Ondansetron HCl 4 mg Q4HP PRN IV 12/11/24 22:00 12/16/24 09:25 4 MG Docusate Sodium 100 mg BIDPRN PRN PO 12/11/24 22:00 12/16/24 09:25 100 MG Acetaminophen 650 mg Q6HP PRN PO 12/11/24 22:00 Vancomycin HCl 0 ml @ 0 mls/hr UD IV 12/11/24 22:15 Hydralazine HCl 10 mg Q6HP PRN IV 12/11/24 22:30 12/12/24 09:51 10 MG Nitroglycerin 0.4 mg Q5MINP PRN SL 12/11/24 23:45 Morphine Sulfate 2 mg Q30M PRN IV 12/11/24 23:45 Heparin Sodium (Porcine) 5,000 units Q12HR SC 12/12/24 10:00 12/16/24 09:27 5,000 UNITS Morphine Sulfate 4 mg Q4HPRN PRN IV 12/12/24 11:00 12/16/24 09:26 4 MG Sodium Bicarbonate 650 mg QID PO 12/12/24 22:00 12/16/24 12:30 650 MG Furosemide 80 mg DAILY PO 12/12/24 18:30 12/16/24 09:24 80 MG Meropenem 50 ml @ 17 mls/hr DAILY IV 12/16/24 10:00 12/16/24 09:23 17 MLS/HR Zirconium Oxide 10 gm DAILY PO 12/17/24 10:00 Laboratory Results Laboratory Tests 12/15/24 15:03 Chemistry Test 12/15/24 15:03 Calcium Level 9.1 mg/dL (8.7-10.4) Urinalysis Test 12/13/24 04:34 12/13/24 04:44 Urine Creatinine 71.73 mg/dL (30.0-125.0) Urine Sodium 41 mmol/L (40-220) Urine Total Protein 93.6 mg/dL (1-14) H Urine Color Colorless (Yellow) Urine Clarity Turbid (Clear) H Urine pH 5.5 (5.0-9.0) Urine Specific [place] 1.014 (1.001-1.035) Urine Protein 1+ (Negative) H Urine Ketones Negative (Negative) Urine Blood Trace /uL (Negative) H Urine Nitrite Negative (Negative) Urine Bilirubin Negative (Negative) Urine Urobilinogen Normal mg/dL (Negative) Urine Leukocyte Esterase 3+ /uL (Negative) Urine RBC 4 /hpf (0 - 3) Urine WBC Clumps Present /hpf (None Seen) Urine Microscopic WBC 472 /HPF (0-3) H Urine Squamous Epithelial Cells Few /hpf (<5) Urine Bacteria None seen /hpf (None Seen) Urine Yeast (Budding) Occasional /hpf (None Urine Glucose Normal mg/dL (Normal) Microbiology Microbiology Date/Time Source Procedure Growth Status 12/15/24 12:45 Leg Left Gram Stain - Final Resulted 12/15/24 12:45 Leg Left Anaerobic Culture Pending Resulted 12/15/24 12:45 Leg Left Aerobic Culture - Preliminary Resulted 12/13/24 12:37 Blood Blood Culture - Preliminary NO GROWTH AFTER 72 HOURS OF INCUBATION. Resulted Labs and/or images reviewed: Labs reviewed by me, Image(s) reviewed by me Assessment/Plan Assessment/Plan Sepsis secondary to bilateral lower leg cellulitis wound cultures growing Pseudomonas, DC vancomycin start meropenem renal dose 500 mg IV daily Bilateral Lower leg cellulitis: Status post incision and drainage by Dr. Washburn ESRD not on dialysis: Per nephrology patient needs dialysis patient refusing dialysis Acute hyperkalemia resolved DVT ruled out Hypertension Anemia of chronic disease Moderate malnutrition Severe hypothyroidism TSH 10.5: Synthroid Arterial ultrasound rule out peripheral arterial disease ordered Podiatric consult for Dr. Washburn Time spent 60 minutes Advanced care time 20 minutes Patient is full code Medication noncompliance Per electronic calibration technician Kelsey patient refused dialysis cath placement Plan discussed with: Patient Date of Service: Dec 16, 2024 Billing Provider: MURALI LOBATO MD Common Visit Codes: [id number] INP/OBS CARE(HIGH) Secondary Visit Codes: [id number] CARE PLAN 30 MINUTES MURALI LOBATO MD Dec 16, 2024 13:43
--- NOTE | 2024-12-16 16:31 | DVHPN2 ---
Subjective The patient is a 54-year-old male with past medical history of hypertension and thyroid disease who presented to [facility] ED with complaint of bilateral lower extremity nonhealing wound for the past months associated with generalized weakness. Patient reports wound get worse with drains, weeping, getting worse that prompted this visit. Patient states he resides at [facility] currently on strong antibiotics that were prescribed by his print support specialist and receives in-home care by a wound care nurse everyday. Patient also reports he was supposed to be on dialysis, but he was off for unknown reason. Patient was seen and evaluated in the ED, laboratory data shows WBC 8.5, hemoglobin 9.1, hematocrit 26.8, platelets 237 sodium 137, potassium 5.8, BUN 87, creatinine 7.13, GFR 8, glucose 109, blood pressure 167/52, heart rate 80, temperature 97.7 F, O2 saturation 97% on room air. Please see medication orders section in the computer. On my assessment, patient denied chest pain, no headache, no dizziness, no shortness of breaths, no nausea, no vomiting, no fever, no chills. Patient was admitted for further evaluation and medical management. Reviewed: Care Plan, H&P, Labs, Medications, Previous Orders, Radiology Changes from previous H/P or p: No Changes Eyes: No Pain, No Vision change, No Conjunctivae inflammation, No Eyelid inflammation, No Other, No Redness ENT: No Ear pain, No Ear discharge, No Nose pain, No Nose discharge, No Nose congestion, No Mouth pain, No Mouth swelling, No Throat pain, No Throat swelling, No Other Cardiovascular: No Chest Pain, No Palpitations, No Orthopnea, No Paroxysmal Noc. Dyspnea, No Edema, No Lt Headedness, No Other Respiratory: No Cough, No Dry, No Shortness of breath, No SOB with excertion, No Wheezing, No Hemoptysis, No Pleuritic Pain, No Sputum, No Other Gastrointestinal: No Nausea, No Vomiting, No Abdominal Pain, No Diarrhea, No Constipation, No Melena, No Hematochezia, No Other Genitourinary: No Dysuria, No Frequency, No Incontinence, No Hematuria, No Retention, No Other Musculoskeletal: No other, No neck pain, No shoulder pain, No arm pain, No back pain, No hand pain, No leg pain, No foot pain Skin: Rash (Bilateral lower extremity open wound.); No Lesions, No Jaundice, No Bruising, No Other Objective Vitals Vital Signs Date Time Temp Pulse Resp B/P (MAP) Pulse Ox O2 Delivery O2 Flow Rate FiO2 12/16/24 13:00 98.3 61 20 133/63 (86) 98 98.3 12/16/24 08:00 Room Air* 0 21 Intake/Output Intake and Output 12/16/24 07:00 Intake Total 1205 ml Output Total 300 ml Balance 905 ml Intake Oral 1200 ml IV Total 5 ml Output Urine Total 300 ml # Voids 2 # Bowel Movements 1 Exam DERMATOLOGIC EXAM: - Skin is dry and cool to the touch dry bilaterally. - Nails 1-5 of the bilateral foot are thickened, discolored, dystrophic, and tender to palpate with subungual debris - Hair loss noted to bilateral feet - bilateral lower extremity wounds with erythema VASCULAR EXAM: - DP and PT pulses are palpable bilaterally. - CONVEYOR TECHNICIAN is brisk to all digits. - Feet are cool to touch compared to lower legs bilaterally. NEUROLOGIC EXAM: - Normal light touch sensation to the superficial peroneal, deep peroneal, sural, saphenous, and tibial nerve branches. - Protective sensation is diminished as tested with a 5.07 10g [place] bilaterally. MUSCULOSKELETAL EXAM: - No gross deformities - Muscle strength is 5/5 and active motion is pain-free and symmetrical bilaterally - No pain or crepitation with passive range of motion bilaterally to all major pedal joints Medications Current Medications Medications Dose Ordered Sig/Mily Route Start Time Stop Time Status Last Admin Dose Admin Sodium Chloride 1,000 ml @ 60 mls/hr [id number] IV 12/11/24 22:00 12/16/24 02:00 60 MLS/HR Acetaminophen/ Hydrocodone Bitart 1 tab Q4HP PRN PO 12/11/24 22:00 12/16/24 12:32 1 TAB Ondansetron HCl 4 mg Q4HP PRN IV 12/11/24 22:00 12/16/24 09:25 4 MG Docusate Sodium 100 mg BIDPRN PRN PO 12/11/24 22:00 12/16/24 09:25 100 MG Acetaminophen 650 mg Q6HP PRN PO 12/11/24 22:00 Vancomycin HCl 0 ml @ 0 mls/hr UD IV 12/11/24 22:15 Hydralazine HCl 10 mg Q6HP PRN IV 12/11/24 22:30 12/12/24 09:51 10 MG Nitroglycerin 0.4 mg Q5MINP PRN SL 12/11/24 23:45 Morphine Sulfate 2 mg Q30M PRN IV 12/11/24 23:45 Heparin Sodium (Porcine) 5,000 units Q12HR SC 12/12/24 10:00 12/16/24 09:27 5,000 UNITS Morphine Sulfate 4 mg Q4HPRN PRN IV 12/12/24 11:00 12/16/24 09:26 4 MG Sodium Bicarbonate 650 mg QID PO 12/12/24 22:00 12/16/24 12:30 650 MG Furosemide 80 mg DAILY PO 12/12/24 18:30 12/16/24 09:24 80 MG Meropenem 50 ml @ 17 mls/hr DAILY IV 12/16/24 10:00 12/16/24 09:23 17 MLS/HR Zirconium Oxide 10 gm DAILY PO 12/17/24 10:00 Laboratory Results Laboratory Tests 12/15/24 15:03 Urinalysis Test 12/13/24 04:34 12/13/24 04:44 Urine Creatinine 71.73 mg/dL (30.0-125.0) Urine Sodium 41 mmol/L (40-220) Urine Total Protein 93.6 mg/dL (1-14) H Urine Color Colorless (Yellow) Urine Clarity Turbid (Clear) H Urine pH 5.5 (5.0-9.0) Urine Specific [place] 1.014 (1.001-1.035) Urine Protein 1+ (Negative) H Urine Ketones Negative (Negative) Urine Blood Trace /uL (Negative) H Urine Nitrite Negative (Negative) Urine Bilirubin Negative (Negative) Urine Urobilinogen Normal mg/dL (Negative) Urine Leukocyte Esterase 3+ /uL (Negative) Urine RBC 4 /hpf (0 - 3) Urine WBC Clumps Present /hpf (None Seen) Urine Microscopic WBC 472 /HPF (0-3) H Urine Squamous Epithelial Cells Few /hpf (<5) Urine Bacteria None seen /hpf (None Seen) Urine Yeast (Budding) Occasional /hpf (None Urine Glucose Normal mg/dL (Normal) Microbiology Microbiology Date/Time Source Procedure Growth Status 12/15/24 12:45 Leg Left Gram Stain - Final Resulted 12/15/24 12:45 Leg Left Anaerobic Culture Pending Resulted 12/15/24 12:45 Leg Left Aerobic Culture - Preliminary Resulted 12/13/24 12:37 Blood Blood Culture - Preliminary NO GROWTH AFTER 72 HOURS OF INCUBATION. Resulted Assessment/Plan Assessment/Plan ASSESSMENT: Patient is a 54 year old seen on the floor 1 day s/p from a bilateral leg I&D PLAN: - The patients chart was reviewed, clinical findings were discussed with the patient, the etiologies of the conditions were discussed in detail, and a treatment plan was agreed to at this time, with both oral and written instructions provided. - reviewed advanced imaging - patient seems to be managing pain after debridement okay - we will leave the dressings intact for another day - patient will need significant wound care as an outpatient - patient will need a 4 layer compression with Medihoney to bilateral lower extremity applied - depending outpatient discharge he should follow up with me in approximately 1 week All questions were answered and concerns addressed to the patient's satisfaction. The patient was given the phone number to the clinic and was told how to make contact with the clinic should any concerns or questions arise. Patient understands that if any questions or concerns arise prior to the next appointment, we should be contacted immediately. FOLLOW-UP: Continue to follow while inpatient Plan discussed with: Patient Problem List: (1) Hyperkalemia (2) Antibiotic-resistant bacterial infection (3) Acute renal failure superimposed on chronic kidney disease (4) Open wound of both lower extremities Date of Service: Dec 16, 2024 Billing Provider: HOLLAND ROTHMAN DPM Common Visit Codes: [id number] INP/OBS CARE(MOD), [id number] INP/OBS CARE(HIGH) HOLLAND ROTHMAN DPM Dec 16, 2024 16:31
[2024-12-16 21:00] VITALS: BP 133/54; PULSE 72; RESP 20; TEMP 97.9; O2SAT 97
--- NOTE | 2024-12-17 08:12 | DVHDS2 ---
Discharge Summary Date of Admission Dec 11, 2024 at 23:38 Date of Discharge: Dec 16, 2024 Admitting Diagnosis Sepsis secondary to bilateral feet infection Wounds: Bilateral lower extremity open wounds Labs/Diagnostic Data: Laboratory Results Test 12/15/24 15:03 12/14/24 14:10 12/14/24 07:10 12/13/24 04:44 White Blood Count 7.2 10^3/uL (4.4-10.8) Red Blood Count 2.85 10^6/uL (4.5-5.90) Hemoglobin 9.0 g/dL (13.5-17.5) Hematocrit 27.7 % (41.0-53.0) Mean Corpuscular Volume 97.2 fL (80.0-100.0) Mean Corpuscular Hemoglobin 31.6 pg (28.0-32.0) Mean Corpuscular Hemoglobin Concent 32.5 g/dL (32.0-36.0) Red Cell Distribution Width 15.1 % (11.8-14.3) Platelet Count 184 10^3/uL (140-450) Mean Platelet Volume 7.2 fL (6.9-10.8) Neutrophils (%) (Auto) 90.9 % (37.0-80.0) Lymphocytes (%) (Auto) 5.5 % (10.0-50.0) Monocytes (%) (Auto) 1.2 % (0.0-12.0) Eosinophils (%) (Auto) 2.1 % (0.0-7.0) Basophils (%) (Auto) 0.3 % (0.0-2.0) Neutrophils # (Auto) 6.5 10 ^3/uL (1.6-8.6) Lymphocytes # (Auto) 0.4 10 ^3/uL (0.4-5.4) Monocytes # (Auto) 0.1 10 ^3/uL (0-1.3) Eosinophils # (Auto) 0.1 10 ^3/uL (0-0.8) Basophils # (Auto) 0 10 ^3/uL (0-0.2) Nucleated Red Blood Cells 0.1 % Sodium Level 141 mmol/L (136-145) Potassium Level 5.4 mmol/L (3.5-5.1) Chloride Level 112 mmol/L (98-107) Carbon Dioxide Level 20 mmol/L (20-31) Anion Gap 9 (5-15) Blood Urea Nitrogen 89 mg/dL (9-23) Creatinine 5.07 mg/dL (0.700-1.30) Glomerular Filtration Rate Calc 13 mL/min (>90) BUN/Creatinine Ratio 17.6 (10.0-20.0) Serum Glucose 124 mg/dL (74-106) Calcium Level 9.1 mg/dL (8.7-10.4) Random Vancomycin Level 10.4 ug/mL (5-10) Prothrombin Time 11.4 sec (9.3-11.8) Prothrombin Time INR 1.08 (0.9-1.15) Activated Partial Thromboplast Time 31.3 SEC (24.5-34.5) Phosphorus Level 5.9 mg/dL (2.4-5.1) Magnesium Level 2.0 mg/dL (1.6-2.6) Vitamin D 25-Hydroxy 14.2 ng/mL (30.0-100) Parathyroid Hormone (Intact) 45.9 pg/mL (18.4-80.1) Hepatitis B Surface Antigen Negative (Negative) Urine Color Colorless (Yellow) Urine Clarity Turbid (Clear) Urine pH 5.5 (5.0-9.0) Urine Specific [place] 1.014 (1.001-1.035) Urine Protein 1+ (Negative) Urine Ketones Negative (Negative) Urine Blood Trace /uL (Negative) Urine Nitrite Negative (Negative) Urine Bilirubin Negative (Negative) Urine Urobilinogen Normal mg/dL (Negative) Urine Leukocyte Esterase 3+ /uL (Negative) Urine RBC 4 /hpf (0 - 3) Urine WBC Clumps Present /hpf (None Seen) Urine Microscopic WBC 472 /HPF (0-3) Urine Squamous Epithelial Cells Few /hpf (<5) Urine Bacteria None seen /hpf (None Seen) Urine Yeast (Budding) Occasional /hpf (None Urine Glucose Normal mg/dL (Normal) Test 12/13/24 04:34 12/12/24 03:59 12/11/24 16:34 Urine Creatinine 71.73 mg/dL (30.0-125.0) Urine Sodium 41 mmol/L (40-220) Urine Total Protein 93.6 mg/dL (1-14) Total Bilirubin < 0.2 mg/dL (0.2-1.0) Aspartate Amino Transferase (AST) 15 U/L (13-40) Alanine Aminotransferase (ALT) < 9 U/L (7-40) Alkaline Phosphatase 57 U/L (46-116) Total Protein 7.2 g/dL (5.7-8.2) Albumin 3.9 g/dL (3.2-4.8) Lactic Acid Level 0.8 mmol/L (0.4-2.0) Thyroid Stimulating Hormone (TSH) 10.52 uIU/mL (0.55-4.78) Other Laboratory Tests 12/15/24 15:03 Brief Hx & Hospital Course: 54-year-old male who recently moved from [place] to [facility] to temporarily live with his sister came in for bilateral chronic leg wounds and for ESRD. Patient was on hemodialysis for some time in [place] but discontinued and the patient claimed that the buyer intern in [place] advised he does not need dialysis anymore. He was seen by Nephrology Dr. Terrazas who advised the patient has ESRD and need dialysis patient refused to have the dialysis cath placed. Patient underwent incision drainage of the bilateral leg wounds by the podiatric Dr. Washburn. Wound cultures grew Pseudomonas and vancomycin was discontinued and meropenem was started at the renal dose. DVT ruled out acute hyperkalemia resolved patient has severe hypothyroidism TSH of 10.5 started on Synthroid. 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 Patient has been noncompliant throughout his hospital stay refusing procedures and treatment. I personally explained to the patient about the seriousness of his bilateral foot infection and need for dialysis as recommended by the specialists. He refused to understand and left [place] on 12/16/2024. Condition poor at the time of leaving [place]. His sister was aware of patient leaving [place]. He was planning to go back to [place]. Consults/Reason for consult [facility] Nephrology Dr. Terrazas Operations or Procedures Incision and drainage of the open wounds bilateral feet by auger operator Dr Washburn Condition at Discharge: Poor Final Diagnosis/Problems List Sepsis secondary to bilateral lower leg cellulitis wound cultures growing Pseudomonas, DC vancomycin start meropenem renal dose 500 mg IV daily Bilateral Lower leg cellulitis: Status post incision and drainage by Dr. Washburn ESRD not on dialysis: Per nephrology patient needs dialysis patient refusing dialysis Acute hyperkalemia resolved DVT ruled out Hypertension Anemia of chronic disease Moderate malnutrition Severe hypothyroidism TSH 10.5: Synthroid Arterial ultrasound rule out peripheral arterial disease ordered Podiatric consult for Dr. Washburn Time spent 60 minutes Advanced care time 20 minutes Patient is full code Medication noncompliance Per quality control engineering technician Kelsey patient refused dialysis cath placement Discharge Disposition: AMA Discharge Instruct/Medications Diet comment: Not applicable Patient left AMA Activity comment: Not applicable Patient left AMA Follow Up/Referral: Not applicable Patient left AMA Medications: Not applicable Patient left AMA 39 (Time taken for discharge summary 39 minutes) Discharge Statement: "Patient was advised to return to the ER or call 911 if any headaches, dizziness, shortness of breath, chest pain, abdominal pain, bleeding, fevers, or worsening of medical condition. Patient was counseled about treatment plan, medications, possible side effects, patientverbalized understanding. All questions were answered to the best of my ability. This discharge took greater then 30 minutes in planning, reviewing documentation, counseling the patient, and discussing with other team members." ASSESSMENT ASSESSMENT Hospital Course Marginally improved Assessment Same as preop Date of Service: Dec 17, 2024 Billing Provider: MURALI LOBATO MD Common Visit Codes: 21421-RYE/OBS DISCH DAY >30min MURALI LOBATO MD Dec 17, 2024 08:12
[2024-12-17] MEDS ORDERED: SODIUM ZIRCONIUM CYCL 10 GM PAK PO SCH (10:00)
== END 2024-12-16 20:56 | disposition left against medical advice (07) | DRG 853 ==
LOC: ER 15:35 → TELE 23:38 → TELE-WESTW 12-12 16:55 → TELE 12-15 15:33 → WEST WING 12-15 15:49 → OVERFLOW 12-16 13:18 → TELE-WESTW 12-16 13:33
PROVIDERS: ADMIT Nurse Practitioner Family; ATTEND Family Medicine
PROC: 5A1D70Z Performance of Urinary Filtration, Intermittent, Less than 6 Hours Per Day (ICD-10-PCS; 2024-12-14)
PROC: 0JBN0ZZ Excision of Right Lower Leg Subcutaneous Tissue and Fascia, Open Approach (ICD-10-PCS; 2024-12-15)
PROC: 0JBP0ZZ Excision of Left Lower Leg Subcutaneous Tissue and Fascia, Open Approach (ICD-10-PCS; principal; 2024-12-15 12:12)
DX: A41.52 Sepsis due to Pseudomonas (principal); N18.6 End stage renal disease; L03.115 Cellulitis of right lower limb; N17.9 Acute kidney failure, unspecified; E44.0 Moderate protein-calorie malnutrition; E87.20 Acidosis, unspecified; L03.116 Cellulitis of left lower limb; L02.416 Cutaneous abscess of left lower limb; L02.415 Cutaneous abscess of right lower limb; L97.919 Non-pressure chronic ulcer of unspecified part of right lower leg with unspecified severity; L97.929 Non-pressure chronic ulcer of unspecified part of left lower leg with unspecified severity; I12.0 Hypertensive chronic kidney disease with stage 5 chronic kidney disease or end stage renal disease; E87.5 Hyperkalemia; D63.1 Anemia in chronic kidney disease; E03.9 Hypothyroidism, unspecified; Z88.0 Allergy status to penicillin; Z99.2 Dependence on renal dialysis; Z91.148 Patient's other noncompliance with medication regimen for other reason; Z91.158 Patient's noncompliance with renal dialysis for other reason; Z91.199 Patient's noncompliance with other medical treatment and regimen due to unspecified reason; Z68.30 Body mass index [BMI] 30.0-30.9, adult
CPT/HCPCS: 36415; 76775; 80048; 80053; 80202; 81001; 82306; 82565; 82570; 83605; 83735; 83970; 84100; 84156; 84300; 84443; 85014; 85018; 85025; 85610; 85730; 86850; 86900; 86901; 87040; 87070; 87075; 87077; 87186; 87205; 87340; 93925; 93970; 96365; 96367; 96372; 96375; G0378; J1100; J2185; J2250; J2405; J2704; J3490